=== PATIENT | female | born 1975 | race Caucasian/White ===

== ENCOUNTER → 2021-12-14 17:29 | Outpatient (BNVA) | payer MEDICAID, SELFPAY | PROVIDERS: Visit Provider Emergency Medicine | DX: S90.32XA Contusion of left foot, initial encounter (principal); X58.XXXA Exposure to other specified factors, initial encounter | CPT/HCPCS: 73630 ==

== ENCOUNTER → 2022-01-03 18:40 | Outpatient (BNVA) | payer SELFPAY | PROVIDERS: Visit Provider Registered Nurse Neonatal Intensive Care | DX: N39.0 Urinary tract infection, site not specified (principal); R31.9 Hematuria, unspecified; L30.9 Dermatitis, unspecified | CPT/HCPCS: 81000 ==

== ENCOUNTER 2022-01-21 23:46 | Emergency (ER) | payer MEDICAID, SELFPAY ==
[2022-01-21 23:55] VITALS: BP 193/100; PULSE 86; RESP 18; TEMP 36.6; O2SAT 100; BMI 36.6
[2022-01-21 23:59] VITALS: BP 170/102; PULSE 90; RESP 18
--- NOTE | 2022-01-22 01:02 | ED_ITS ---
HPI - Dental/Oral General: Chief complaint: Dental/Oral Stated complaint: Tooth Pain Time Seen by Provider: 01/22/22 00:00 History of Present Illness: Patient is a 47-year-old female comes to the ED with dental pain. Patient says symptoms started couple hours prior to arrival. She is having pain that is on the left upper jaw. She rates the pain an 8 out of 10. She says she has a bad tooth in left upper jaw that is causing pain. She is going to call around for a dentist on Sunday. Associated symptoms: Denies fever(s) or odynophagia Review of Systems Const: Denies: fever(s), chills or fatigue Eyes: Denies: change in vision or eye discomfort ENMT: Reports: dental pain; Denies: throat pain, odynophagia, nasal discharge or nasal congestion Card: Denies: chest pain, palpitations, edema, swelling of feet/ankles, dyspnea on exertion or orthopnea Resp: Denies: dyspnea, productive cough or non-productive cough GI: Denies: abdominal pain, nausea, vomiting, diarrhea, constipation or hematochezia : Denies: flank pain, dysuria or hematuria Musc: Denies: neck pain, back pain or extremity swelling Skin/Breast: Denies: rash or new lesions Neuro: Denies: headache(s), numbness in extremities or weakness in extremities PFS ED PFSH: Medical History No pertinent family history Surgical History No pertinent past surgical history Social History Smoking and tobacco status: current every day smoker Physical Exam Const: COMMON NORMALS: no acute distress, patient oriented x3 and alert GENERAL APPEARANCE: cooperative and comfortable HENMT: COMMON NORMALS: normocephalic HEAD & SCALP: normocephalic MOUTH: Normal oral and palatal mucosa present TEETH & GINGIVA: Yes abnormal tooth and associated gingiva upper left second molar tender and with associated gingival edema and Yes caries THROAT: posterior oropharynx normal and uvula midline Neck/C-Spine: COMMON NORMALS: supple GENERAL: Yes normal visual inspection Resp: COMMON NORMALS: normal respiratory effort, No retractions, No use of accessory muscles and clear to auscultation bilaterally AUSCULTATION: clear to auscultation bilaterally Cardio: COMMON NORMALS: regular rate, regular rhythm, S1 normal heart sound present, S2 normal heart sound present, No gallops present (Cardio), No clicks present (Cardio), No murmurs present (Cardio) and Peripheral pulses 2+ throughout RATE: regular rate RHYTHM: regular rhythm HEART SOUNDS: S1 normal heart sound present and S2 normal heart sound present PERIPHERAL PULSES: Peripheral pulses 2+ throughout GI: COMMON NORMALS: Normal to inspection, nondistended, normoactive bowel sounds present, Soft to palpation, non-tender and no masses PALPATION: Yes Soft to palpation : COMMON NORMALS: Yes no CVA tenderness BLADDER/KIDNEY EXAM: Yes no CVA tenderness Back/Pelvis: COMMON NORMALS: no CVA tenderness Extremity: COMMON NORMALS: normal to inspection Neuro: COMMON NORMALS: patient oriented x3 and moves all extremities SENSORIUM/ORIENTATION: Yes alert Skin: GENERAL SKIN EXAM: dry skin Course Vital Signs: Vital signs: Vital Signs Temperature 97.8 F 01/21/22 23:55 Pulse Rate 90 01/22/22 01:31 Respiratory Rate 18 01/22/22 01:31 Blood Pressure 170/102 01/22/22 01:31 Pulse Oximetry 100 01/21/22 23:55 MDM - Dental/Oral Medical Decision Making Patient is a 47-year-old female comes to the ED with dental pain. Vitals are stable. She appears nontoxic and has dental caries and some gingival edema and tenderness around left upper molar. Patient diagnosed with dental pain and was given a dose of clindamycin and [place] while here in the ED to help with symptoms. She was discharged home with a prescription for clindamycin and ibuprofen 800 mg and lidocaine viscous. Told to get an appointment set up with a dentist for further evaluation of dental pain. Return to ED precautions given. Patient understood agree with plan. Discharge Plan Discharge Patient Disposition: Home Clinical Impression: Pain, dental Condition: Stable Prescriptions: New ibuprofen 800 mg tablet 800 mg PO Q8H PRN (Reason: pain) Qty: 20 0RF Lidocaine Viscous 2 % solution 1 applic mucous membrane BID PRN (Reason: pain) Qty: 100 0RF clindamycin HCl 150 mg capsule 300 mg PO QID 7 Days Qty: 56 0RF No Action nitrofurantoin monohyd/m-cryst [Macrobid] 100 mg capsule 100 mg PO BID 5 Days Qty: 10 0RF Rx Instructions: must administer with a meal/food triamcinolone acetonide 0.1 % cream 1 applic topical DAILY 14 Days Qty: 30 0RF Discharge Orders: Discharge ED (Routine); Ordered 01/22/22 Ordered By: Ty Maldonado Discharge Diet: Regular Discharge Activity: Increase activity as tolerated Patient Instructions: Toothache (ED) Activity Restrictions/Additional Instructions: Follow-up with dentist as soon as possible to have dental pain evaluated. Take medications as prescribed. Return to the ER or your medical provider if condition worsens. Please read and understand discharge instructions. Thank you for choosing [facility] for your healthcare needs today. Please realize this is an emergency room and that we are providing you with a medical screening exam and this may not be complete and all inclusive of all the testing and or work up that you may need to determine your ailment or severity of your illness. It is very important that you follow up as instructed or that you return to the Emergency Department should you have concerns or if your condition changes or worsens in any way. Coding Level of Care Code ED Metal Fabricator Apprentice for Radha Fwd Exam Comprehensive
[2022-01-22] MEDS: HYDROcodone-acetaminophen 7.5-325 mg Tablet 1 TAB PO (01:23)
[2022-01-22] MEDS: clindamycin 150 mg Capsule 300 MG PO (01:24)
[2022-01-22 01:31] VITALS: BP 170/102; PULSE 90; RESP 18
== END 2022-01-22 01:33 | disposition home or self-care (01) ==
PROVIDERS: Emergency Provider Physician Assistant
DX: K08.89 Other specified disorders of teeth and supporting structures (principal); F17.210 Nicotine dependence, cigarettes, uncomplicated
CPT/HCPCS: 99283

== ENCOUNTER 2022-03-20 07:27 | Emergency (ER) | payer MEDICAID, SELFPAY ==
[2022-03-20] VITALS (7 sets, daily range): BP systolic 118–133; BP diastolic 67–87; PULSE 67–87; RESP 14–22; TEMP 36.4; O2SAT 96–99; BMI 36.6
--- NOTE | 2022-03-20 07:49 | W.ED.ABDPA2 ---
HPI - Abdominal Pain General: Chief Complaint: Abdominal Pain Stated Complaint: abd pain right side, sweating Time Seen by Provider: 03/20/22 07:28 Source: patient Mode of arrival: ambulatory Limitations: no limitations History of Present Illness: 47-year-old female comes in complaining of sudden onset of right flank pain began 1 hour prior to arrival she became dizzy diaphoretic. No vomiting or diarrhea increased pain when she stands or walks uses it less when she said she has not noted any correlation to urination she denies any hematuria. She has previously had a uterine ablation does not have regular periods. No dysuria urgency or frequency no vomiting no diarrhea. No chest pain. No recent cough cold or congestion. MD elicited complaint: flank pain Pertinent past history: none Onset (ago): hour(s) (1) Pain Consistency: constant Location: R flank Severity: moderate Quality: aching Radiation: RLQ and suprapubic Exacerbating factors: nothing Relieving factors: nothing Associated Symptoms: Denies anorexia, belching, bloating, change in bowel habits, change in stool character, chills, coffee ground emesis, constipation, GI cramping, diarrhea, dyspepsia, dysuria, excessive flatus, fever(s), heartburn, hematochezia, hematuria, hematemesis, fecal incontinence, loose stools, melena, nausea, poor appetite, syncope and vomiting Related Data: Date of Last Menstrual Period: 07/23/03 Review of Systems Const: Denies: fever(s) or chills ENMT: Denies: throat pain, ear or mastoid pain, nasal discharge or nasal congestion Card: Denies: syncope Resp: Denies: dyspnea, productive cough or non-productive cough GI: Reports: abdominal pain; Denies: nausea, vomiting, hematemesis, coffee ground emesis, heartburn, diarrhea, constipation, bloating, GI cramping, belching, excessive flatus, fecal incontinence, change in bowel habits, change in stool character, hematochezia or melena : Denies: dysuria or hematuria Skin/Breast: Denies: rash or pruritus PFSH ED PFSH: Medical History No pertinent family history Surgical History History of endometrial ablation Social History Smoking and tobacco status: current every day smoker Female Reproductive History: Date of last menstrual period: 07/23/03 Physical Exam Const: GENERAL APPEARANCE: cooperative and comfortable ORIENTATION/CONSCIOUSNESS: Yes awake, Yes oriented to person, Yes oriented to place and Yes oriented to time HENMT: COMMON NORMALS: normocephalic, atraumatic, hearing grossly normal bilaterally and moist oral mucous membranes HEAD & SCALP: normocephalic and atraumatic Eye: COMMON NORMALS: Equal, round and reactive pupils present, EOMs intact bilaterally, conjunctivae normal and no scleral icterus CONJUNCTIVA: Yes conjunctivae normal PUPIL: Yes Equal, round and reactive pupils present Resp: COMMON NORMALS: normal respiratory effort, No retractions, No use of accessory muscles and clear to auscultation bilaterally AUSCULTATION: clear to auscultation bilaterally Cardio: COMMON NORMALS: regular rate, regular rhythm and No murmurs present (Cardio) RATE: regular rate RHYTHM: regular rhythm GI: COMMON NORMALS: Soft to palpation and No hepatosplenomegaly present AUSCULTATION: Yes normoactive bowel sounds PALPATION: Yes Soft to palpation, No Tenderness to palpation present (GI), No Guarding due to palpation present (GI) and Yes No hepatosplenomegaly present Extremity: COMMON NORMALS: normal to inspection, capillary refill normal, no clubbing, cyanosis or edema, no calf tenderness and no pedal edema Neuro: SENSORIUM/ORIENTATION: Yes oriented to person, Yes oriented to place and Yes oriented to time Skin: COMMON NORMALS: no rashes or lesions noted GENERAL SKIN EXAM: no rashes or lesions noted Course Vital Signs: Vital signs: Vital Signs Temperature 97.6 F 03/20/22 07:39 Pulse Rate 67 03/20/22 13:11 Respiratory Rate 21 H 03/20/22 13:11 Blood Pressure 123/67 03/20/22 13:11 Pulse Oximetry 98 03/20/22 13:11 Oxygen Delivery Me thod 03/20/22 12:22 MDM - Abdominal Pain Medical Decision Making Reviewed findings with patient. Uterine fibroid on ultrasound. Recommend follow-up with gynecology can use NSAIDs prescription given. Medical Records I reviewed the patient's medical records. Lab Data I reviewed the patient's lab results. : 03/20/22 07:44 03/20/22 07:44 Labs/Radiology: Radiology Impressions Abdomen/Pelvis CT 03/20/22 10:22 IMPRESSION: 1. Normal appendix. 2. No renal obstruction or calcification. 3. RIGHT adnexal 2 mm calcification. Favor this is external to the ureter and no secondary findings of a renal obstruction. 4. Mildly prominent, lobulated uterus. May be secondary to fibroids. 5. No free fluid or adenopathy. Laboratory Results WBC 12.2 10^3/uL (4.0-10.0) H 03/20/22 07:44 RBC 4.96 10^6/uL (4.1-5.3) 03/20/22 07:44 Hgb 14.2 g/dL (11.5-15.3) 03/20/22 07:44 Hct 43.9 % (37.0-47.0) 03/20/22 07:44 MCV 88.5 fl (81-99) 03/20/22 07:44 MCH 28.6 pg (28.0-34.0) 03/20/22 07:44 MCHC 32.3 g/dL (30.0-36.0) 03/20/22 07:44 RDW 13.4 % (12.1-15.1) 03/20/22 07:44 Plt Count 373 10^3/cmm (130-400) 03/20/22 07:44 MPV 9.4 fL (7.4-10.4) 03/20/22 07:44 Neut % (Auto) 63.6 % 03/20/22 07:44 Lymph % (Auto) 28.5 % 03/20/22 07:44 Glenn % (Auto) 6.2 % 03/20/22 07:44 Eos % (Auto) 1.2 % 03/20/22 07:44 Baso % (Auto) 0.2 % 03/20/22 07:44 Neut # (Auto) 7.76 10^3/uL (1.8-7.7) H 03/20/22 07:44 Lymph # (Auto) 3.5 10^3/uL (0.8-4.8) 03/20/22 07:44 Glenn # (Auto) 0.8 10^3/uL (0.2-0.9) 03/20/22 07:44 Eos # (Auto) 0.2 10^3/uL (0.0-0.8) 03/20/22 07:44 Baso # (Auto) 0.0 10^3/uL (0.0-0.1) 03/20/22 07:44 Nucleated RBC % (auto) 0 % 03/20/22 07:44 Nucleated RBCs # 0.0 /100WBC 03/20/22 07:44 Sodium 139 mmol/L (136-145) 03/20/22 07:44 Potassium 3.3 mmol/L (3.5-5.1) L 03/20/22 07:44 Chloride 103 mmol/L (98-107) 03/20/22 07:44 Carbon Dioxide 28 mmol/L (-29) 03/20/22 07:44 Anion Gap 11.3 (5-19) 03/20/22 07:44 BUN 15 mg/dL (6-20) 03/20/22 07:44 Creatinine 0.6 mg/dL (0.5-0.9) 03/20/22 07:44 GFR Calculation 108.1 mL/min (90-130) 03/20/22 07:44 Glucose 140 mg/dL (65-115) H 03/20/22 07:44 Calculated Osmolality 291 mOsm/kg (285-295) 03/20/22 07:44 Calcium 9.0 mg/dL (8.5-10.5) 03/20/22 07:44 Total Bilirubin 0.2 mg/dL (0.15-1.2) 03/20/22 07:44 AST 14 U/L (0-32) 03/20/22 07:44 ALT 11 U/L (0-33) 03/20/22 07:44 Alkaline Phosphatase 102 U/L (35-105) 03/20/22 07:44 Total Protein 6.9 g/dL (6.6-8.7) 03/20/22 07:44 Albumin 3.9 g/dL (3.5-5.2) 03/20/22 07:44 Globulin 3.0 g/dL (1.3-4.6) 03/20/22 07:44 Lipase 21 U/L (13-60) 03/20/22 07:44 HCG, Qual Negative (Negative) 03/20/22 07:44 Urine Color Yellow (Yellow) 03/20/22 07:47 Urine Appearance Clear (CLEAR) 03/20/22 07:47 Urine pH 6 (5-7) 03/20/22 07:47 Ur Specific [place] 1.015 (1.005-1.030) 03/20/22 07:47 Urine Protein Neg (Negative) 03/20/22 07:47 Urine Glucose (UA) Norm (Normal) 03/20/22 07:47 Urine Ketones Negative (Negative) 03/20/22 07:47 Urine Blood Trace (Negative) H 03/20/22 07:47 Urine Nitrate Negative (Negative) 03/20/22 07:47 Urine Bilirubin Neg (Negative) 03/20/22 07:47 Urine Urobilinogen Norm mg/dL (Negative) 03/20/22 07:47 Ur Leukocyte Esterase Negative (Negative) 03/20/22 07:47 Urine RBC 0-4 /hpf (0-2) H 03/20/22 07:47 Urine WBC 0-4 /hpf (0-5) H 03/20/22 07:47 Ur Squamous Epith Cells Rare /hpf (0-5) 03/20/22 07:47 Amorphous Sediment Not Reportable 03/20/22 07:47 Urine Bacteria 1+ /hpf (NONE) H 03/20/22 07:47 Discharge Plan Discharge Patient Disposition: Home Clinical Impression: Pelvic pain, Uterine fibroid Condition: Stable Prescriptions: New diclofenac sodium 75 mg tablet,delayed release (DR/EC) 75 mg PO Q12H PRN (Reason: pain) Qty: 20 0RF Discontinued ibuprofen 200 mg Tablet 800 mg PO Q8H PRN (Reason: Pain) Discharge Orders: Discharge ED (Routine); Ordered 03/20/22 Ordered By: Fili Bolanos Patient Instructions: Abdominal Pain (ED), Opioid Safety Activity Restrictions/Additional Instructions: If pain persists or recurs follow-up with your primary care doctor. Coding Level of Care Code ED Central Sterile Tech for Chg Fwd Exam Comprehensive
[2022-03-20 07:56] LABS: Basophils % 0.2 %; Eosinophils # 0.2 10^3/uL (0.0-0.8); Eosinophils % 1.2 %; Hematocrit 43.9 % (37.0-47.0); Hemoglobin 14.2 g/dL (11.5-15.3); Lymphocytes # 3.5 10^3/uL (0.8-4.8); Lymphocytes % 28.5 %; Mean Corpuscular HGB Conc 32.3 g/dL (30.0-36.0); Mean Corpuscular Hemoglobin 28.6 pg (28.0-34.0); Mean Corpuscular Volume 88.5 fl (81-99); Mean Platelet Volume 9.4 fL (7.4-10.4); Monocytes # 0.8 10^3/uL (0.2-0.9); Monocytes % 6.2 %; Neutrophils # 7.76 10^3/uL (1.8-7.7); Neutrophils % 63.6 %; Nucleated Red Blood Cells % 0 %; Platelet Count 373 10^3/cmm (130-400); Red Blood Count 4.96 10^6/uL (4.1-5.3); Red Cell Distribution Width 13.4 % (12.1-15.1); White Blood Count 12.2 10^3/uL (4.0-10.0)
[2022-03-20 08:10] LABS: Alanine Aminotransferase 11 U/L (0-33); Albumin Level 3.9 g/dL (3.5-5.2); Alkaline Phosphatase 102 U/L (35-105); Anion Gap 11.3 (5-19); Aspartate Amino Transferase 14 U/L (0-32); Blood Urea Nitrogen 15 mg/dL (6-20); Carbon Dioxide 28 mmol/L (22-29); Chloride 103 mmol/L (98-107); Glomerular Filtration Rate 108.1 mL/min (90-130); Glucose 140 mg/dL (65-115); HCG, Serum Qual Negative (Negative); Lipase 21 U/L (13-60); Osmolality Calculated 291 mOsm/kg (285-295); Potassium 3.3 mmol/L (3.5-5.1); Sodium 139 mmol/L (136-145); Total Bilirubin 0.2 mg/dL (0.15-1.2); Total Protein 6.9 g/dL (6.6-8.7)
[2022-03-20] MEDS: HYDROmorphone 1 mg/mL INJ 1 mL 0.5 MG IVP (08:13)
[2022-03-20] MEDS: ondansetron 2 mg/ML SDV 2 mL 4 MG IVP (08:13)
[2022-03-20 10:05] LABS: Urine Appearance Clear (CLEAR); Urine Color Yellow (Yellow)
[2022-03-20 10:06] LABS: Add Urine Culture? No; Add Urine Microscopic? YES; Bacteria Urine 1+ /hpf; Bilirubin Urine Neg (Negative); Blood Urine Trace (Negative); Glucose Urine UA Norm (Normal); Ketones Urine Negative (Negative); Leukocyte Esterase Urine Negative (Negative); Nitrate Urine Negative (Negative); Protein Urine Neg (Negative); RBC Urine 0-4 /hpf (0-2); Specific Gravity, Urine 1.015 (1.005-1.030); Squamous Epithelial Cell Urine RARE /hpf (0-5); Urobilinogen Urine Norm (Negative); WBC Urine 0-4 /hpf (0-5); pH Urine 6 (5-7)
--- NOTE | 2022-03-20 10:22 | CT_ITS ---
WS: [id number] CT ABDOMEN AND PELVIS NONCONTRAST HISTORY: Abdominal pain, RIGHT lower quadrant pain]. TECHNIQUE: Imaging performed through the abdomen and pelvis. Coronal and sagittal reformats are submi tted. All CT scans at [facility] use at least one of these dose optimization techniques: auto mated exposure control; mA and/or kV adjustment per patient size (includes targeted exams where dose is matched to clinical indication); or iterative reconstruction. DLP: 891.23 mGy.cm COMPARISON: None available. Lower thorax: Lung bases are clear. Slight enlargement of the heart chambers. Small hiatal hernia. Liver: Mild hepatomegaly. Mild variable attenuation throughout the liver is probably from hepatic dharmesh atosis. Gallbladder: Mildly contracted. No adjacent inflammation. Pancreas: Normal size and attenuation. Normal pancreatic duct. No pancreatitis or mass. Spleen: Normal. Adrenal glands: Normal. No mass. Right kidney: Normal size kidney with no mass or hydronephrosis. Left kidney: Normal size kidney with no mass or hydronephrosis. Aorta: Normal abdominal aorta, no aneurysm or atherosclerosis. No free fluid, intraperitoneal air or significant lymphadenopathy. GI tract: Nondistended stomach. No small bowel obstruction. Moderate diffuse constipation. Normal josé endix. Abdominal wall: Small umbilical hernia. Pelvis: No free fluid in the pelvis. The uterus is anteverted. On the sagittal projection there is a bulbous contour of the uterus suggesting fibroids. No adnexal mass. Tiny calcifications bilaterally w ithin the adnexa. Left-sided calcifications are external to the urological system. There is a 2 mm ca lcification in the RIGHT adnexa closely associated with the ureter. I favor this is external to the u reter. No secondary findings of a renal obstruction. Osseous structures: Unremarkable. CT/CT abdomen pelvis wo con [id number] IMPRESSION: 1. Normal appendix. 2. No renal obstruction or calcification. 3. RIGHT adnexal 2 mm calcification. Favor this is external to the ureter and no secondary findings of a renal obstruction. 4. Mildly prominent, lobulated uterus. May be secondary to fibroids. 5. No free fluid or adenopathy.
== END 2022-03-20 13:12 | disposition home or self-care (01) ==
PROVIDERS: Emergency Provider Family Medicine
DX: R10.2 Pelvic and perineal pain (principal); D25.9 Leiomyoma of uterus, unspecified; F17.210 Nicotine dependence, cigarettes, uncomplicated
CPT/HCPCS: 74176; 80053; 81001; 83690; 84703; 85025; 96374; 96375; 99285; J1170; J2405

== ENCOUNTER 2022-08-06 20:20 | Emergency (ER) | payer MEDICAID, SELFPAY ==
--- NOTE | 2022-08-06 20:24 | XRR_ITS ---
PROCEDURE INFORMATION: Exam: XR Chest Exam date and time: 08/06/2022 8:37 PM Age: 47 years old Clinical indication: Cough and shortness of breath; Additional info: Cough, dyspnea TECHNIQUE: Imaging protocol: Radiologic exam of the chest. Views: 2 views. COMPARISON: CT abdomen pelvis con [id number] 03/20/2022 10:44 AM FINDINGS: Lungs: Unremarkable. No consolidation. Pleural spaces: Unremarkable. No pleural effusion. No pneumothorax. Heart/Mediastinum: Unremarkable. No cardiomegaly. Bones/joints: Unremarkable. XR/XR chest 2V* [id number] IMPRESSION: No acute findings.
[2022-08-06 20:26] VITALS: BP 166/90; PULSE 98; RESP 16; TEMP 37.2; O2SAT 100; BMI 35.5
--- NOTE | 2022-08-06 20:30 | W.ED.FEVER ---
HPI - Fever General: Chief Complaint: Fever Stated Complaint: cough, body aches, lungs hurt Time Seen by Provider: 08/06/22 20:24 PFSH ED PFSH: Medical History No pertinent family history Surgical History History of endometrial ablation Social History Smoking and tobacco status: current every day smoker Female Reproductive History: Date of last menstrual period: 07/23/03 Course Vital Signs: Vital signs: Vital Signs Temperature 99 F 08/06/22 20:26 Pulse Rate 98 08/06/22 20:26 Respiratory Rate 16 08/06/22 20:26 Blood Pressure 166/90 08/06/22 20:26 Pulse Oximetry 100 08/06/22 20:26 Oxygen Delivery Me thod 08/06/22 20:26 Discharge Plan Discharge Condition: Stable Prescriptions: No Action diclofenac sodium 75 mg tablet,delayed release (DR/EC) 75 mg PO Q12H PRN (Reason: pain) Qty: 20 0RF Coding Level of Care Code ED Inking Machine Tender for Radha Delong
[2022-08-06] MEDS: dexamethasone 4 mg Tablet 10 MG PO (21:07)
[2022-08-06] MEDS: azithromycin 250 mg Tablet 500 MG PO (21:07)
[2022-08-06 21:24] LABS: Influenza A by IFA negative (Negative); Influenza B by IFA negative (Negative); SARS Covid-2 Antigen positive (Negative)
--- NOTE | 2022-08-06 21:32 | ED_ITS ---
HPI - Fever General: Chief Complaint: Fever Stated Complaint: cough, body aches, lungs hurt Time Seen by Provider: 08/06/22 20:24 History of Present Illness: 47-year-old female comes in today for complaints of cough and fever since yesterday. Patient reports burning in the chest with cough has a history of bronchitis and smokes. Patient appears unwell but not toxic. No acute distress is noted. Review of Systems Const: Reports: fever(s) and body aches Resp: Reports: dyspnea and productive cough PFSH ED PFSH: Medical History No pertinent family history Surgical History History of endometrial ablation Social History Smoking and tobacco status: current every day smoker Female Reproductive History: Date of last menstrual period: 07/23/03 Physical Exam Const: COMMON NORMALS: alert HENMT: COMMON NORMALS: TM's normal bilaterally HEAD & SCALP: normal to inspection TYMPANIC MEMBRANE: TM's normal bilaterally THROAT: posterior oropharynx normal Resp: COMMON NORMALS: normal respiratory effort AUSCULTATION: wheezes expiratory wheezes Cardio: COMMON NORMALS: regular rate and regular rhythm RATE: regular rate RHYTHM: regular rhythm Extremity: COMMON NORMALS: normal to inspection Neuro: SENSORIUM/ORIENTATION: Yes alert Skin: COMMON NORMALS: turgor normal GENERAL SKIN EXAM: turgor normal Course Vital Signs: Vital signs: Vital Signs Temperature 99 F 08/06/22 20:26 Pulse Rate 98 08/06/22 20:26 Respiratory Rate 16 08/06/22 20:26 Blood Pressure 166/90 08/06/22 20:26 Pulse Oximetry 100 08/06/22 20:26 Oxygen Delivery Me thod 08/06/22 20:26 MDM - Fever Medical Decision Making Patient comes in today with complaints of bronchial discomfort, fever, body aches and productive cough for 2 days. On exam lungs have some expiratory wheezes. Posterior pharynx pink and moist. Bilateral TMs are clear. Vital signs are normal. Differential diagnosis includes acute bronchitis, exacerbation of asthma, COVID-19, influenza. Laboratory tests noted positive COVID-19, chest x-ray was normal. Patient was given a dose of steroids due to her history of asthma and bronchitis. Patient be kept on albuterol 2 puffs every 4 hours as needed for cough or shortness of breath. Encourage patient drink plenty of fluids and follow-up with primary care. Patient also requested a round of azithromycin due to the bronchitis and improvement in the past with it. Agreed to plan and need for follow-up or return to the ER for worsening symptoms. Lab Data Radiology Impressions Chest X-Ray 08/06/22 20:24 IMPRESSION: No acute findings. Laboratory Results Influenza Type A Ag negative (Negative) 08/06/22 20:52 Influenza Type B Ag negative (Negative) 08/06/22 20:52 SARS-CoV-2 Ag (Rapid) positive (Negative) 08/06/22 20:52 Discharge Plan Discharge Patient Disposition: Home Clinical Impression: Bronchitis, COVID-19 Condition: Stable Prescriptions: New dexamethasone 4 mg tablet 4 mg PO DAILY Qty: 4 0RF azithromycin 250 mg tablet 250 mg PO DAILY 4 Days Qty: 4 0RF Rx Instructions: start on day 2 of therapy No Action diclofenac sodium 75 mg tablet,delayed release (DR/EC) 75 mg PO Q12H PRN (Reason: pain) Qty: 20 0RF Discharge Orders: Discharge ED (Routine); Ordered 08/06/22 Ordered By: Logan Gonzalez Discharge Diet: Usual diet Discharge Activity: Increase activity as tolerated Patient Instructions: Acute Bronchitis (ED), COVID-19 (Coronavirus Disease 2019) (ED) Activity Restrictions/Additional Instructions: Home and rest. Drink plenty of fluids. Use acetaminophen and ibuprofen for pain and discomfort. Use albuterol inhaler 2 puffs every 4 hours as needed for shortness of breath or wheezing. Follow-up with primary care for further instructions return to ED for new concerns. Stand Alone Forms: Work/School Release Coding Level of Care Code ED Analyst Market Intelligence for Radha Delong
[2022-08-06] MEDS: albuterol 8 gm MDI 2 PUFF INHALATION (21:50)
[2022-08-06 21:51] VITALS: PULSE 80; RESP 16; O2SAT 96
[2022-08-06 21:56] VITALS: BP 150/87; PULSE 89; RESP 15; TEMP 37.3; O2SAT 100
== END 2022-08-06 21:56 | disposition home or self-care (01) ==
PROVIDERS: Emergency Provider Nurse Practitioner Family
DX: U07.1 COVID-19 (principal); J40 Bronchitis, not specified as acute or chronic; Z20.822 Contact with and (suspected) exposure to COVID-19; F17.210 Nicotine dependence, cigarettes, uncomplicated
CPT/HCPCS: 71046; 87426; 87804; 94640; 99283; J3535; J8540; Q0144

== ENCOUNTER 2022-08-25 17:43 | Emergency (ER) | payer MEDICAID, SELFPAY ==
[2022-08-25 18:03] VITALS: BP 188/111; PULSE 94; RESP 18; TEMP 36.5; O2SAT 96; BMI 35.5
--- NOTE | 2022-08-25 18:06 | XRR_ITS ---
NOTE: Report was unsigned for reason: Order was edited. Original Signature date and time was: 08/25/2022 1851 PROCEDURE INFORMATION: Exam: XR Left Hand Exam date and time: 08/25/2022 6:23 PM Age: 47 years old Clinical indication: Pain; Hand; Left; Additional info: Fall; Injury, today, pain mostly around thumb TECHNIQUE: Imaging protocol: Radiologic exam of the Left hand. Views: 3 or more views. COMPARISON: No relevant prior studies available. FINDINGS: Bones/joints: There are mild degenerative changes 1st carpometacarpal articulation. Remaining joint surfaces are preserved. There is no fracture, dislocation or malalignment. Soft tissues: Unremarkable. MTDD XR/XR hand RT min 3V* [id number] IMPRESSION: No acute bony abnormalities.
--- NOTE | 2022-08-25 19:42 | W.ED.FALL ---
HPI - Fall General: Chief Complaint: Fall Stated Complaint: fall, right hand pain Time Seen by Provider: 08/25/22 19:37 History of Present Illness: Patient is a 47-year-old female comes to the ED with Right hand pain after fall. Patient says she slipped on some ice and landed with her Right arm extended out. She is complaining of having pain that is mostly located in her thumb. She has some mild swelling and bruising in the thenar region of hand. Increased pain with range of motion of the thumb. She rates her pain currently 4 out of 10. Associated symptoms-after fall: Denies abdominal pain, chest pain, headache(s), hematuria or neck pain Review of Systems Const: Denies: fever(s), chills or fatigue Eyes: Denies: change in vision or eye discomfort ENMT: Denies: throat pain, odynophagia, nasal discharge or nasal congestion Card: Denies: chest pain, palpitations, edema, swelling of feet/ankles, dyspnea on exertion or orthopnea Resp: Denies: dyspnea, productive cough or non-productive cough GI: Denies: abdominal pain, nausea, vomiting, diarrhea, constipation or hematochezia : Denies: flank pain, dysuria or hematuria Musc: Reports: extremity pain (Right hand) and extremity swelling (Right hand); Denies: neck pain or back pain Skin/Breast: Denies: rash or new lesions Neuro: Denies: headache(s), numbness in extremities or weakness in extremities PFS ED PFSH: Medical History No pertinent family history Surgical History History of endometrial ablation Social History Smoking and tobacco status: current every day smoker Female Reproductive History: Date of last menstrual period: 07/23/03 Physical Exam Const: COMMON NORMALS: patient oriented x3 and alert GENERAL APPEARANCE: cooperative and comfortable HENMT: COMMON NORMALS: normocephalic HEAD & SCALP: normocephalic MOUTH: Normal oral and palatal mucosa present THROAT: posterior oropharynx normal and uvula midline Neck/C-Spine: COMMON NORMALS: supple GENERAL: Yes normal visual inspection Resp: COMMON NORMALS: normal respiratory effort, No retractions, No use of accessory muscles and clear to auscultation bilaterally AUSCULTATION: clear to auscultation bilaterally Cardio: COMMON NORMALS: regular rate, regular rhythm, S1 normal heart sound present, S2 normal heart sound present, No gallops present (Cardio), No clicks present (Cardio), No murmurs present (Cardio) and Peripheral pulses 2+ throughout RATE: regular rate RHYTHM: regular rhythm HEART SOUNDS: S1 normal heart sound present and S2 normal heart sound present PERIPHERAL PULSES: Peripheral pulses 2+ throughout GI: COMMON NORMALS: Normal to inspection, nondistended, normoactive bowel sounds present, Soft to palpation, non-tender and no masses PALPATION: Yes Soft to palpation : COMMON NORMALS: Yes no CVA tenderness BLADDER/KIDNEY EXAM: Yes no CVA tenderness Back/Pelvis: COMMON NORMALS: no CVA tenderness Extremity: COMMON NORMALS: normal to inspection NARRATIVE EXTREMITY EXAM: Right hand?some mild swelling and ecchymosis around the thenar aspect of thumb and hand. Full range of motion in all fingers. Neurovascular intact distally. Neuro: COMMON NORMALS: patient oriented x3 SENSORIUM/ORIENTATION: Yes alert GAIT: Yes Normal gait present Skin: GENERAL SKIN EXAM: dry skin Course Vital Signs: Vital signs: Vital Signs Temperature 97.7 F 08/25/22 18:03 Pulse Rate 91 08/25/22 19:57 Respiratory Rate 18 08/25/22 19:57 Blood Pressure 188/111 08/25/22 18:03 Pulse Oximetry 96 08/25/22 19:57 Oxygen Delivery Me thod 08/25/22 18:03 MDM - Fall Medical Decision Making Patient is a 47-year-old female comes to the ED with right hand pain after fall. Patient says she slipped on some ice and landed with her right arm extended out. She is complaining of having pain that is mostly located in her thumb. She has some mild swelling and bruising in the thenar region of hand. Increased pain with range of motion of the thumb. She rates her pain currently 4 out of 10. Right hand?some mild swelling and ecchymosis around the thenar aspect of thumb and hand. Full range of motion in all fingers. Neurovascular intact distally. Vitals are stable. Right hand x-ray shows no acute bony abnormalities. Patient was diagnosed with a contusion of hand and was stable for discharge home. She was given a dose of Toradol before she discharged. Told to follow-up with her PCP in the next 7 to 10 days for reevaluation. Return to ED precautions given. Patient understood and agreed with plan. Lab Data Radiology Impressions Hand X-Ray 08/25/22 18:06 IMPRESSION: No acute bony abnormalities. Discharge Plan Discharge Patient Disposition: Home Clinical Impression: Contusion of hand Qualifiers: Encounter type: initial encounter Laterality: right Qualified Code(s): S60.221A - Contusion of right hand, initial encounter Condition: Stable Prescriptions: No Action diclofenac sodium 75 mg tablet,delayed release (DR/EC) 75 mg PO Q12H PRN (Reason: pain) Qty: 20 0RF dexamethasone 4 mg tablet 4 mg PO DAILY Qty: 4 0RF Discharge Orders: Discharge ED (Routine); Ordered 08/25/22 Ordered By: Ty Maldonado Discharge Diet: Regular Discharge Activity: Increase activity as tolerated Patient Instructions: Contusion in Adults (ED) Activity Restrictions/Additional Instructions: Follow-up with medical provider as directed in the next 5 to 7 days for reevaluation. Rest, ice and elevate Right hand. Take [id number] ibuprofen for any pain or inflammation. Return to the ER or your medical provider if condition worsens. Please read and understand discharge instructions. Thank you for choosing [facility] for your healthcare needs today. Please realize this is an emergency room and that we are providing you with a medical screening exam and this may not be complete and all inclusive of all the testing and or work up that you may need to determine your ailment or severity of your illness. It is very important that you follow up as instructed or that you return to the Emergency Department should you have concerns or if your condition changes or worsens in any way. Coding Level of Care Code ED Packing Room Supervisor for Radha Delong Exam Comprehensive
[2022-08-25] MEDS: ketorolac 60 mg/2 mL INJ IM (19:55)
[2022-08-25 19:57] VITALS: PULSE 91; RESP 18; O2SAT 96
== END 2022-08-25 19:58 | disposition home or self-care (01) ==
PROVIDERS: Emergency Provider Physician Assistant
DX: S60.221A Contusion of right hand, initial encounter (principal); F17.210 Nicotine dependence, cigarettes, uncomplicated; W00.0XXA Fall on same level due to ice and snow, initial encounter
CPT/HCPCS: 73130; 96372; 99284; J1885

== ENCOUNTER 2023-02-02 07:08 | Emergency (ER) | payer MEDICAID, SELFPAY ==
[2023-02-02] VITALS (9 sets, daily range): BP systolic 129–216; BP diastolic 57–115; PULSE 67–82; RESP 16–18; TEMP 36.4; O2SAT 94–100
--- NOTE | 2023-02-02 07:32 | XR_ITS ---
WS: [id number] Portable AP upright chest, 02/02/2023 Clinical Data: epigastric pain Comparison: Portable chest, 08/06/2022 Findings: No nodules, masses or effusions are seen. The heart is normal. The pulmonary vascularity is not increased. No pneumonia or pneumothorax is seen. The aortic arch and descending thoracic aorta s how minimal tortuosity. XR/XR chest 1V portable [id number] Impression: Atherosclerosis.
--- NOTE | 2023-02-02 07:39 | ED_ITS ---
HPI - Abdominal Pain General: Chief Complaint: Abdominal Pain Stated Complaint: abd pain/back pain Time Seen by Provider: 02/02/23 07:31 History of Present Illness: Patient is a 48-year-old female who comes to the ED with abdominal pain. Symptoms started around 2:00 AM this morning while laying in bed.. Pain is located in the epigastric region and it radiates to her back. She rates the pain currently a 9 out of 10 and says its a sharp stabbing type pain. She has never had abdominal pain like this in the past. Denies any chest pain. Patient says she has tried taking Tums and that provided no relief. Denies any other improving or relieving factors. Denies any past abdominal surgeries. Denies fevers, chills, nausea, vomiting, bladder or bowel symptoms. No history of GERD. Associated Symptoms: Denies chills, constipation, diarrhea, dysuria, fever(s), hematochezia, hematuria, nausea and vomiting Review of Systems Const: Denies: fever(s), chills or fatigue Eyes: Denies: change in vision or eye discomfort ENMT: Denies: throat pain, odynophagia, nasal discharge or nasal congestion Card: Denies: chest pain, palpitations, edema, swelling of feet/ankles, dyspnea on exertion or orthopnea Resp: Denies: dyspnea, productive cough or non-productive cough GI: Reports: abdominal pain; Denies: nausea, vomiting, diarrhea, constipation or hematochezia : Denies: flank pain, dysuria or hematuria Musc: Denies: neck pain, back pain or extremity swelling Skin/Breast: Denies: rash or new lesions Neuro: Denies: headache(s), numbness in extremities or weakness in extremities PFS ED PFSH: Medical History No pertinent family history Surgical History History of endometrial ablation Social History Smoking and tobacco status: current every day smoker Substance/Drug Use: current Physical Exam Const: COMMON NORMALS: no acute distress, patient oriented x3 and alert HENMT: COMMON NORMALS: normocephalic HEAD & SCALP: normocephalic MOUTH: Normal oral and palatal mucosa present THROAT: posterior oropharynx normal and uvula midline Neck/C-Spine: COMMON NORMALS: supple GENERAL: Yes normal visual inspection Resp: COMMON NORMALS: normal respiratory effort, No retractions, No use of accessory muscles and clear to auscultation bilaterally AUSCULTATION: clear to auscultation bilaterally Cardio: COMMON NORMALS: regular rate, regular rhythm, S1 normal heart sound present, S2 normal heart sound present, No gallops present (Cardio), No clicks p resent (Cardio), No murmurs present (Cardio) and Peripheral pulses 2+ throughout RATE: regular rate RHYTHM: regular rhythm HEART SOUNDS: S1 normal heart sound present and S2 normal heart sound present PERIPHERAL PULSES: Peripheral pulses 2+ throughout GI: COMMON NORMALS: Normal to inspection, nondistended, normoactive bowel sounds present, Soft to palpation and no masses PALPATION: Yes Soft to palpation and Yes Tenderness to palpation present (GI) Details: other (Epigastric) : COMMON NORMALS: Yes no CVA tenderness BLADDER/KIDNEY EXAM: Yes no CVA tenderness Back/Pelvis: COMMON NORMALS: no CVA tenderness Extremity: COMMON NORMALS: normal to inspection Neuro: COMMON NORMALS: patient oriented x3 SENSORIUM/ORIENTATION: Yes alert GAIT: Yes Normal gait present Skin: GENERAL SKIN EXAM: dry skin Course Vital Signs: Vital signs: Vital Signs Temperature 97.5 F L 02/02/23 07:24 Pulse Rate 76 02/02/23 11:35 Respiratory Rate 16 02/02/23 11:35 Blood Pressure 132/79 02/02/23 11:35 Pulse Oximetry 100 02/02/23 11:35 Oxygen Delivery Me thod Room Air 02/02/23 07:24 MDM - Abdominal Pain Medical Decision Making Patient is a 48-year-old female who comes to the ED with abdominal pain. Symptoms started around 2:00 AM this morning while laying in bed.. Pain is located in the epigastric region and it radiates to her back. She rates the pain currently a 9 out of 10 and says its a sharp stabbing type pain. She has never had abdominal pain like this in the past. Denies any chest pain. Patient says she has tried taking Tums and that provided no relief. Denies any other improving or relieving factors. Denies any past abdominal surgeries. Denies fevers, chills, nausea, vomiting, bladder or bowel symptoms. No history of GERD. Vitals are stable. Exam shows some epigastric abdominal tenderness but rest of exam is benign. White blood cell count of 13.2 but the rest of CBC and CMP are unremarkable. Lipase was normal. H. pylori negative. Troponins negative. EKG showed no acute findings. Chest x-ray was normal. CT of abdomen pelvis showed gallbladder that showed some trace sludge and was somewhat distended with a proximal gallstone suspected. They recommended doing an ult rasound for further evaluation. Ultrasound of her gallbladder was performed and it showed cholelithiasis with no other signs of acute cholecystitis. Patient was given IV fluids, nausea meds, Pepcid and pain meds and her symptoms improved. She was able to tolerate p.o. fluids. She is stable for discharge home and diagnosed with cholelithiasis and I placed order with case management for patient be referred to general surgery for follow-up. She was sent home with a prescription for pain meds and nausea meds. Strict return to ED precautions given. Patient understood and agreed with plan. Lab Data I reviewed the patient's lab results. 02/02/23 07:39 02/02/23 07:39 Labs/Radiology: Radiology Impressions Chest X-Ray 02/02/23 07:32 Impression: Atherosclerosis. Abdomen/Pelvis CT 02/02/23 08:34 IMPRESSION: 1. The gallbladder is somewhat distended with trace sludge as well as suspected proximal gallstones. There appears to be some slight wall thickening and faint stranding. Some early inflammation of cholecystitis with cholelithiasis could also present in this fashion. Consider right upper quadrant ultrasound as well as hepatobiliary profile studies. 2. The bowel gas pattern appears nonobstructive overall. There is some incomplete distention although could be peristaltic related versus sequela of previous inflammation for example about the hepatic flexure. Overall no fluid collections or acute inflammatory stranding changes of the abdomen are otherwise appreciated. Gallbladder Ultrasound 02/02/23 09:57 Impression: Cholelithiasis. Laboratory Results WBC 13.2 10^3/uL (4.0-10.0) H 02/02/23 07:39 RBC 4.85 10^6/uL (4.1-5.3) 02/02/23 07:39 Hgb 13.3 g/dL (11.5-15.3) 02/02/23 07:39 Hct 41.8 % (37.0-47.0) 02/02/23 07:39 MCV 86.2 fl (81-99) 02/02/23 07:39 MCH 27.4 pg (28.0-34.0) L 02/02/23 07:39 MCHC 31.8 g/dL (30.0-36.0) 02/02/23 07:39 RDW 13.8 % (12.1-15.1) 02/02/23 07:39 Plt Count 333 10^3/cmm (130-400) 02/02/23 07:39 MPV 9.4 fL (7.4-10.4) 02/02/23 07:39 Neut % (Auto) 71.1 % 02/02/23 07:39 Lymph % (Auto) 19.0 % 02/02/23 07:39 [place] % (Auto) 8.0 % 02/02/23 07:39 Eos % (Auto) 1.5 % 02/02/23 07:39 Baso % (Auto) 0.2 % 02/02/23 07:39 Neut # (Auto) 9.38 10^3/uL (1.8-7.7) H 02/02/23 07:39 Lymph # (Auto) 2.5 10^3/uL (0.8-4.8) 02/02/23 07:39 [place] # (Auto) 1.1 10^3/uL (0.2-0.9) H 02/02/23 07:39 Eos # (Auto) 0.2 10^3/uL (0.0-0.8) 02/02/23 07:39 Baso # (Auto) 0.0 10^3/uL (0.0-0.1) 02/02/23 07:39 Nucleated RBC % (auto) 0 % 02/02/23 07:39 Nucleated RBCs # 0.0 /100WBC 02/02/23 07:39 Sodium 138 mmol/L (136-145) 02/02/23 07:39 Potassium 4.1 mmol/L (3.5-5.1) 02/02/23 07:39 Chloride 105 mmol/L (98-107) 02/02/23 07:39 Carbon Dioxide 24 mmol/L (22-29) 02/02/23 07:39 Anion Gap 13.1 (5-19) 02/02/23 07:39 BUN 15 mg/dL (6-20) 02/02/23 07:39 Creatinine 0.5 mg/dL (0.5-0.9) 02/02/23 07:39 GFR Calculation 132.8 mL/min (90-130) H 02/02/23 07:39 Glucose 119 mg/dL (65-115) H 02/02/23 07:39 Calculated Osmolality 288 mOsm/kg (285-295) 02/02/23 07:39 Calcium 9.2 mg/dL (8.5-10.5) 02/02/23 07:39 Total Bilirubin 0.3 mg/dL (0.15-1.2) 02/02/23 07:39 AST 14 U/L (0-32) 02/02/23 07:39 ALT 15 U/L (0-33) 02/02/23 07:39 Alkaline Phosphatase 105 U/L (35-105) 02/02/23 07:39 Troponin T Baseline 6 ng/L (0-10) 02/02/23 07:39 Troponin T 120 Minute 6.00 ng/L (0-10) 02/02/23 10:40 Delta Troponin T 0 ABS# (0-10) 02/02/23 10:40 Total Protein 7.0 g/dL (6.6-8.7) 02/02/23 07:39 Albumin 3.9 g/dL (3.5-5.2) 02/02/23 07:39 Globulin 3.1 g/dL (1.3-4.6) 02/02/23 07:39 Lipase 34 U/L (13-60) 02/02/23 07:39 Urine Color Yellow (Yellow) 02/02/23 09:32 Urine Appearance Sl hazy (CLEAR) A 02/02/23 09:32 Urine pH 7 (5-7) 02/02/23 09:32 Ur Specific Thompson 1.005 (1.005-1.030) 02/02/23 09:32 Urine Protein Neg (Negative) 02/02/23 09:32 Urine Glucose (UA) Norm (Normal) 02/02/23 09:32 Urine Ketones Negative (Negative) 02/02/23 09:32 Urine Blood 2+ (Negative) H 02/02/23 09:32 Urine Nitrate Negative (Negative) 02/02/23 09:32 Urine Bilirubin Neg (Negative) 02/02/23 09:32 Urine Urobilinogen Norm mg/dL (Negative) 02/02/23 09:32 Ur Leukocyte Esterase Negative (Negative) 02/02/23 09:32 Urine RBC 0-4 /hpf (0-2) H 02/02/23 09:32 Urine WBC 0-4 /hpf (0-5) H 02/02/23 09:32 Ur Squamous Epith Cells 5-10 /hpf (0-5) H 02/02/23 09:32 Amorphous Sediment 2+ /hpf 02/02/23 09:32 Urine Bacteria Trace /hpf (NONE) 02/02/23 09:32 H. pylori IgG Antibody Negative (Negative) 02/02/23 07:39 EKG Data EKG 1: EKG interpretation date: 02/02/23 Interpretation: Normal sinus rhythm, 71 bpm, no ST segment elevation or depression seen. Discharge Plan Discharge Patient Disposition: Home Clinical Impression: Cholelithiasis Condition: Stable Prescriptions: New ondansetron 4 mg tablet,disintegrating 4 mg PO Q8H PRN (Reason: nausea and vomiting) Qty: 20 0RF No Action doxycycline hyclate 100 mg tablet 100 mg PO BID 7 Days Qty: 14 0RF Discharge Orders: Discharge ED (Routine); Ordered 02/02/23 Ordered By: Ty Maldonado Discharge Diet: Advance as tolerated and Clear Liquid Discharge Activity: Increase activity as tolerated Patient Instructions: Cholelithiasis, Gallstones (ED), Opioid Safety Activity Restrictions/Additional Instructions: Follow-up with medical provider as directed in the next 5 to 7 days for reevaluation. Case management should be contacted in the next several days to set up an appointment with general surgery for follow-up. Clear liquid diet for the next 24 hours and slowly advance diet as tolerated. Take medications as prescribed. Return to the ER or your medical provider if condition worsens. Please read and understand discharge instructions. Thank you for choosing [facility] for your healthcare needs today. Please realize this is an emergency room and that we are providing you with a medical screening exam and this may not be complete and all inclusive of all the testing and or work up that you may need to determine your ailment or severity of your illness. It is very important that you follow up as instructed or that you return to the Emergency Department should you have concerns or if your condition changes or worsens in any way. Stand Alone Forms: Work/School Release Coding Level of Care Code ED Assistant Chief Train Dispatcher for Radha Delong
[2023-02-02 07:48] LABS: Basophils % 0.2 %; Eosinophils # 0.2 10^3/uL (0.0-0.8); Eosinophils % 1.5 %; Hematocrit 41.8 % (37.0-47.0); Hemoglobin 13.3 g/dL (11.5-15.3); Lymphocytes # 2.5 10^3/uL (0.8-4.8); Mean Corpuscular HGB Conc 31.8 g/dL (30.0-36.0); Mean Corpuscular Hemoglobin 27.4 pg (28.0-34.0); Mean Corpuscular Volume 86.2 fl (81-99); Mean Platelet Volume 9.4 fL (7.4-10.4); Monocytes # 1.1 10^3/uL (0.2-0.9); Neutrophils # 9.38 10^3/uL (1.8-7.7); Neutrophils % 71.1 %; Nucleated Red Blood Cells % 0 %; Platelet Count 333 10^3/cmm (130-400); Red Blood Count 4.85 10^6/uL (4.1-5.3); Red Cell Distribution Width 13.8 % (12.1-15.1); White Blood Count 13.2 10^3/uL (4.0-10.0)
--- NOTE | 2023-02-02 07:52 | ECG_ITS ---
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 Measurements Intervals [place] Rate: 66 P: 28 GA: 140 QRS: 66 QRSD: 93 T: 63 QT: 407 QTc: 428 Interpretive Statements SINUS RHYTHM No previous ECG available for comparison Electronically Signed On 02-02-2023 8:08:59 CDT by Trinh Ruiz M.D. [id number]
[2023-02-02] MEDS: ondansetron 2 mg/ML SDV 2 mL 4 MG IVP (07:58)
[2023-02-02] MEDS: famotidine 20 mg/2 mL INJ 40 MG IVP (07:58)
[2023-02-02] MEDS: morphine 4 mg/mL SDV 1 mL IVP (07:58)
[2023-02-02] MEDS: sodium chloride 0.9% 1,000 ML 999 ML IV (07:59)
[2023-02-02 08:06] LABS: Troponin(5th) Baseline 6 ng/L (0-10)
[2023-02-02 08:08] LABS: Alanine Aminotransferase 15 U/L (0-33); Albumin Level 3.9 g/dL (3.5-5.2); Alkaline Phosphatase 105 U/L (35-105); Anion Gap 13.1 (5-19); Aspartate Amino Transferase 14 U/L (0-32); Blood Urea Nitrogen 15 mg/dL (6-20); Calcium 9.2 mg/dL (8.5-10.5); Carbon Dioxide 24 mmol/L (22-29); Chloride 105 mmol/L (98-107); Globulin 3.1 g/dL (1.3-4.6); Glomerular Filtration Rate 132.8 mL/min (90-130); Glucose 119 mg/dL (65-115); Lipase 34 U/L (13-60); Osmolality Calculated 288 mOsm/kg (285-295); Potassium 4.1 mmol/L (3.5-5.1); Sodium 138 mmol/L (136-145); Total Bilirubin 0.3 mg/dL (0.15-1.2)
[2023-02-02 08:29] LABS: H. Pylori IgG Antibody Negative (Negative)
--- NOTE | 2023-02-02 08:34 | CTR_ITS ---
PROCEDURE INFORMATION: Exam: CT Abdomen And Pelvis With Contrast Exam date and time: 02/02/2023 8:48 AM Age: 48 years old Clinical indication: Abdominal pain; Epigastric; Prior surgery; Surgery date: 6+ months; Additional info: Epigastric pain and tenderness.No history of trauma or recent surgery is provided. TECHNIQUE: Imaging protocol: Computed tomography of the abdomen and pelvis with contrast. 210image(s) are provided. Radiation optimization: All CT scans at this facility use at least one of these dose optimization techniques: automated exposure control; mA and/or kV adjustment per patient size (includes targeted exams where dose is matched to clinical indication); or iterative reconstruction. Contrast material: OMNI 350; Contrast volume: 100 ml; Contrast route: INTRAVENOUS (IV); Other technique: Axial images are available with sagittal and coronal reconstruction views. Automated dose exposure control is utilized. The DLP is 996.52. REPORTING DATA: Count of CT and Cardiac NM exams in prior 12 months: This patient has received [address] and 0 known cardiac nuclear medicine studies in the 12 months prior to the current study. COMPARISON: 1. CT abdomen pelvis wo con [id number] 03/20/2022 10:44 AM 2. CR XR chest 1V portable [id number] 02/02/2023 7:47 AM RADIATION DOSE METRICS: Total DLP (mGy-cm): 996.52 FINDINGS: Lungs: No lobar consolidation is appreciated. There is minimal subsegmental atelectasis versus post inflammatory scarring demonstrated. Liver: There appears to be some marginal hepatic steatosis. There is some subtle periportal tracking. There appears to be some developmental fat near the fissure for ligamentum teres similar overall with subtle cortical lobulation. Gallbladder and bile ducts: There is some gallbladder sludge and gallstone type appearance with proximal predominance. There appears to be some subtle gallbladder wall thickening. No definite common ductal level radiopaque obstructive calculus is appreciated.Distal most, ampullary level evaluation is limited. Pancreas: No interval pancreatic ductal dilatation or radiopaque calculus is currently appreciated. Spleen: The splenic parenchyma appears homogeneous. Adrenal glands: Unremarkable. Kidneys and ureters: There is homogeneous renal parenchymal enhancement with no interval radiopaque obstructive calculus or hydronephrosis appreciated. Stomach and bowel: Some aspects of the colon are undistended. This may also be peristaltic related.There is abundant stool present limiting mucosal detail evaluation.The bowel gas pattern appears nonobstructive.There is a small sliding-type hiatal hernia demonstrated with slight gastroesophageal fold thickening. There is some bowel and luminal associated artifact. There is some small bowel prominence for example central left upper quadrant at approximately 3 cm. Appendix: No evidence of appendicitis. Intraperitoneal space: No free air or free fluid collections are otherwise appreciated. Vasculature: No interval aortic aneurysmal dilatation or intimal irregularity is appreciated with some mild atherosclerotic vascular calcification. There is some slight tortuosity about the splenic hilum vessels similar overall. Lymph nodes: There are subcentimeter predominant para-aortic and mesenteric lymph nodes overall present. Urinary bladder: The bladder contours are grossly unremarkable. Reproductive: There appears to be some trace central uterine canal fluid along with lobulated myomatous appearance. There are some ovarian follicular cystic type changes present. Bones/joints: Osseous alignment is maintained.No interval displaced fracture or dislocation is appreciated. There is some mild chronic appearing disc space narrowing at the lumbosacral junction predominantly. Soft tissues: No radiopaque foreign body or subcutaneous emphysema is appreciated. Other findings: There is some motion artifact present. No other significant interval changes are appreciated. CT/CT abdomen pelvis w con* [id number] IMPRESSION: 1. The gallbladder is somewhat distended with trace sludge as well as suspected proximal gallstones. There appears to be some slight wall thickening and faint stranding. Some early inflammation of cholecystitis with cholelithiasis could also present in this fashion. Consider right upper quadrant ultrasound as well as hepatobiliary profile studies. 2. The bowel gas pattern appears nonobstructive overall. There is some incomplete distention although could be peristaltic related versus sequela of previous inflammation for example about the hepatic flexure. Overall no fluid collections or acute inflammatory stranding changes of the abdomen are otherwise appreciated.
[2023-02-02] MEDS: iohexol 350 mg/mL 500 mL Btl (per mL) IV (08:55)
[2023-02-02 09:43] LABS: Add Urine Microscopic? YES; Bacteria Urine TRACE /hpf; Bilirubin Urine Neg (Negative); Blood Urine 2+ (Negative); Glucose Urine UA Norm (Normal); Ketones Urine Negative (Negative); Leukocyte Esterase Urine Negative (Negative); Nitrate Urine Negative (Negative); Protein Urine Neg (Negative); RBC Urine 0-4 /hpf (0-2); Specific Gravity, Urine 1.005 (1.005-1.030); Urine Appearance SL Hazy (CLEAR); Urine Color Yellow (Yellow); Urobilinogen Urine Norm (Negative); WBC Urine 0-4 /hpf (0-5); pH Urine 7 (5-7)
[2023-02-02 09:44] LABS: Add Urine Culture? No; Amorphous Sediment Urine 2+ /hpf
--- NOTE | 2023-02-02 09:49 | ECG_ITS ---
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 Measurements Intervals [place] Rate: 71 P: 20 NV: 144 QRS: 59 QRSD: 94 T: 56 QT: 406 QTc: 444 Interpretive Statements SINUS RHYTHM Compared to ECG 02/02/2023 07:52:42 No significant changes Electronically Signed On 02-02-2023 11:28:52 CDT by Trinh Ruiz M.D. [id number]
--- NOTE | 2023-02-02 09:57 | US_ITS ---
WS: [id number] Gallbladder right upper quadrant ultrasound, 02/02/2023 Clinical Data: Upper abdominal pain-RUQ Comparison: None. Findings: The gallbladder shows numerous gallstones with one stone lodged in the neck of the gallbladder. The w all measures 1.0 cm with no pericholecystic fluid. The common bile duct is 0.6 cm and there are no intrahepatic ductal abnormalities. Liver shows no cysts, masses or dilated intrahepatic ducts. The portal vein is normal. The pancreas is not obscured by overlying bowel gas and no cyst, pseudocyst, or evidence of pancreati tis is noted. Right kidney measures 13.8 cm and no cyst, masses or hydronephrosis can be seen. The aorta and inferior vena cava show no vascular abnormalities. US/US gall bladder [id number] Impression: Cholelithiasis.
[2023-02-02] MEDS: HYDROmorphone 1 mg/mL INJ 1 mL IVP (10:14)
[2023-02-02 11:08] LABS: Troponin 5 2HR Delta 0 ABS# (0-10)
--- NOTE | 2023-02-02 12:18 | DCPLANNER ---
Addendum entered by Shamika Higgins 02/23/23 09:02: Patient had a follow up appointment scheduled with general surgery - patient did attend appointment. Addendum entered by Shamika Higgins 02/05/23 14:33: Patient has a follow up appointment scheduled for Monday, February 20, 2023 at 11:[address] Wheatley at general surgery. Original Note: spd manager had message to schedule a follow up appointment for patient with general surgery. spd manager sent patients information to the front office staff at general surgery. Patients information will be printed and reviewed. Clinic will call patient with appointment information.
== END 2023-02-02 11:36 | disposition home or self-care (01) ==
PROVIDERS: Emergency Provider Physician Assistant
DX: K80.20 Calculus of gallbladder without cholecystitis without obstruction (principal)
CPT/HCPCS: 71045; 74177; 76705; 80053; 81001; 83690; 84484; 85025; 86677; 93005; 96374; 96375; 99285; J1170; J2270; J2405; J3490; J7030; Q9967

== ENCOUNTER 2023-02-06 01:43 | Emergency (ER) | payer MEDICAID, SELFPAY ==
[2023-02-06 01:52] VITALS: BP 212/130; PULSE 80; RESP 18; TEMP 36.4; O2SAT 100; BMI 36.6
--- NOTE | 2023-02-06 01:55 | ED_ITS ---
HPI - Abdominal Pain General: Chief Complaint: Abdominal Pain Stated Complaint: Gall Bladder Pain Time Seen by Provider: 02/06/23 01:44 Source: patient Mode of arrival: ambulatory Limitations: no limitations History of Present Illness: 48-year-old female with history of gallstones she was seen here 4 days ago diagnosed with cholelithiasis states she had been out of her pain meds she has an appointment with surgeon on the first. She states that tonight she ate burrito and salsa and having worsening pain over the last few hours. States pain is in the right upper quadrant rates it a 9 out of 10 had some nausea denies any vomiting denies any fevers. Associated Symptoms: Denies chills, diarrhea, fever(s), nausea and vomiting Review of Systems Const: Denies: fever(s), chills, body aches or change in appetite ENMT: Denies: throat pain or dental pain Card: Denies: chest pain Resp: Denies: dyspnea GI: Reports: abdominal pain; Denies: nausea, vomiting or diarrhea Musc: Denies: neck pain or back pain Skin/Breast: Denies: rash Neuro: Denies: headache(s) PFSH ED PFSH: Medical History No pertinent family history Surgical History History of endometrial ablation Social History Smoking and tobacco status: current every day smoker Substance/Drug Use: current Physical Exam Const: COMMON NORMALS: no acute distress, patient oriented x3 and healthy appearing HENMT: COMMON NORMALS: normocephalic and atraumatic HEAD & SCALP: normocephalic and atraumatic Neck/C-Spine: COMMON NORMALS: full ROM and supple Chest: COMMONS NORMALS: normal inspection of the chest Resp: COMMON NORMALS: normal respiratory effort Cardio: COMMON NORMALS: regular rate, regular rhythm and No murmurs present (Cardio) RATE: regular rate RHYTHM: regular rhythm GI: COMMON NORMALS: Normal to inspection, nondistended, normoactive bowel sounds present, Soft to palpation and no masses PALPATION: Yes Soft to palpation and Yes Tenderness to palpation present (GI) Details: RUQ Extremity: COMMON NORMALS: normal to inspection and full ROM Neuro: COMMON NORMALS: patient oriented x3, moves all extremities and no focal motor deficits Psych: COMMON NORMALS: mental status grossly normal, Normal thought process pr esent and cooperative THOUGHT PROCESS: Normal thought process present Skin: COMMON NORMALS: no rashes or lesions noted and no wounds GENERAL SKIN EXAM: no rashes or lesions noted Course Vital Signs: Vital signs: Vital Signs Temperature 97.6 F 02/06/23 01:52 Pulse Rate 79 02/06/23 03:00 Respiratory Rate 20 H 02/06/23 03:08 Blood Pressure 201/108 02/06/23 03:00 Pulse Oximetry 97 02/06/23 03:08 Oxygen Delivery Me thod Room Air 02/06/23 03:00 MDM - Abdominal Pain Medical Decision Making Patient presents here with abdominal pain consistent with biliary colic blood work here is normal her pain is much improved her abdominal exam at discharge is benign she had ultrasound 4 days ago showed no signs of cholecystitis she has no signs of choledocholithiasis. Patient is stable for discharge she has follow-up with surgeon on the first we will prescribe her pain meds nausea medicine did give her dietary instructions as well. Return if worsening. Medical Records I reviewed the patient's medical records. Lab Data I reviewed the patient's lab results. 02/06/23 02:00 02/06/23 02:00 Labs/Radiology: Laboratory Results WBC 13.0 10^3/uL (4.0-10.0) H 02/06/23 02:00 RBC 4.84 10^6/uL (4.1-5.3) 02/06/23 02:00 Hgb 13.4 g/dL (11.5-15.3) 02/06/23 02:00 Hct 40.9 % (37.0-47.0) 02/06/23 02:00 MCV 84.5 fl (81-99) 02/06/23 02:00 MCH 27.7 pg (28.0-34.0) L 02/06/23 02:00 MCHC 32.8 g/dL (30.0-36.0) 02/06/23 02:00 RDW 13.6 % (12.1-15.1) 02/06/23 02:00 Plt Count 349 10^3/cmm (130-400) 02/06/23 02:00 MPV 9.2 fL (7.4-10.4) 02/06/23 02:00 Neut % (Auto) 66.2 % 02/06/23 02:00 Lymph % (Auto) 23.5 % 02/06/23 02:00 [place] % (Auto) 7.8 % 02/06/23 02:00 Eos % (Auto) 2.0 % 02/06/23 02:00 Baso % (Auto) 0.2 % 02/06/23 02:00 Neut # (Auto) 8.61 10^3/uL (1.8-7.7) H 02/06/23 02:00 Lymph # (Auto) 3.1 10^3/uL (0.8-4.8) 02/06/23 02:00 [place] # (Auto) 1.0 10^3/uL (0.2-0.9) H 02/06/23 02:00 Eos # (Auto) 0.3 10^3/uL (0.0-0.8) 02/06/23 02:00 Baso # (Auto) 0.0 10^3/uL (0.0-0.1) 02/06/23 02:00 Nucleated RBC % (auto) 0 % 02/06/23 02:00 Nucleated RBCs # 0.0 /100WBC 02/06/23 02:00 Sodium 138 mmol/L (136-145) 02/06/23 02:00 Potassium 4.0 mmol/L (3.5-5.1) 02/06/23 02:00 Chloride 102 mmol/L (98-107) 02/06/23 02:00 Carbon Dioxide 25 mmol/L (22-29) 02/06/23 02:00 Anion Gap 15.0 (5-19) 02/06/23 02:00 BUN 12 mg/dL (6-20) 02/06/23 02:00 Creatinine 0.6 mg/dL (0.5-0.9) 02/06/23 02:00 GFR Calculation 107.6 mL/min (90-130) 02/06/23 02:00 Glucose 154 mg/dL (65-115) H 02/06/23 02:00 Calculated Osmolality 289 mOsm/kg (285-295) 02/06/23 02:00 Calcium 9.0 mg/dL (8.5-10.5) 02/06/23 02:00 Total Bilirubin 0.2 mg/dL (0.15-1.2) 02/06/23 02:00 AST 16 U/L (0-32) 02/06/23 02:00 ALT 19 U/L (0-33) 02/06/23 02:00 Alkaline Phosphatase 100 U/L (35-105) 02/06/23 02:00 Total Protein 6.8 g/dL (6.6-8.7) 02/06/23 02:00 Albumin 3.9 g/dL (3.5-5.2) 02/06/23 02:00 Globulin 2.9 g/dL (1.3-4.6) 02/06/23 02:00 Lipase 21 U/L (13-60) 02/06/23 02:00 Discharge Plan Discharge Patient Disposition: Home Clinical Impression: Cholelithiasis, Biliary colic Condition: Stable Prescriptions: New ondansetron 4 mg tablet,disintegrating 4 mg PO Q6H PRN (Reason: nausea and vomiting) Qty: 14 0RF Percocet 7.5-325 mg tablet 1 tab PO Q6H PRN (Reason: pain) Qty: 20 0RF No Action doxycycline hyclate 100 mg tablet 100 mg PO BID 7 Days Qty: 14 0RF ondansetron 4 mg tablet,disintegrating 4 mg PO Q8H PRN (Reason: nausea and vomiting) Qty: 20 0RF Discharge Orders: Discharge ED (Routine); Ordered 02/06/23 Ordered By: Itzel Boateng Discharge Diet: Advance as tolerated Discharge Activity: Resume usual activity Patient Instructions: Biliary Colic (ED), Abdominal Pain (ED) Coding Level of Care Code ED Immunologist for Radha Delong
[2023-02-06] MEDS: sodium chloride 0.9% 1,000 ML 999 ML IV (01:59)
[2023-02-06] MEDS: ondansetron 2 mg/ML SDV 2 mL 4 MG IVP (02:03)
[2023-02-06 02:05] LABS: Basophils % 0.2 %; Eosinophils # 0.3 10^3/uL (0.0-0.8); Hematocrit 40.9 % (37.0-47.0); Hemoglobin 13.4 g/dL (11.5-15.3); Lymphocytes # 3.1 10^3/uL (0.8-4.8); Lymphocytes % 23.5 %; Mean Corpuscular HGB Conc 32.8 g/dL (30.0-36.0); Mean Corpuscular Hemoglobin 27.7 pg (28.0-34.0); Mean Corpuscular Volume 84.5 fl (81-99); Mean Platelet Volume 9.2 fL (7.4-10.4); Monocytes % 7.8 %; Neutrophils # 8.61 10^3/uL (1.8-7.7); Neutrophils % 66.2 %; Nucleated Red Blood Cells % 0 %; Platelet Count 349 10^3/cmm (130-400); Red Blood Count 4.84 10^6/uL (4.1-5.3); Red Cell Distribution Width 13.6 % (12.1-15.1)
[2023-02-06 02:06] VITALS: RESP 29; O2SAT 100
[2023-02-06] MEDS: morphine 4 mg/mL SDV 1 mL IVP (02:06)
[2023-02-06 02:21] LABS: Alanine Aminotransferase 19 U/L (0-33); Albumin Level 3.9 g/dL (3.5-5.2); Alkaline Phosphatase 100 U/L (35-105); Aspartate Amino Transferase 16 U/L (0-32); Blood Urea Nitrogen 12 mg/dL (6-20); Carbon Dioxide 25 mmol/L (22-29); Chloride 102 mmol/L (98-107); Globulin 2.9 g/dL (1.3-4.6); Glomerular Filtration Rate 107.6 mL/min (90-130); Glucose 154 mg/dL (65-115); Lipase 21 U/L (13-60); Osmolality Calculated 289 mOsm/kg (285-295); Sodium 138 mmol/L (136-145); Total Bilirubin 0.2 mg/dL (0.15-1.2); Total Protein 6.8 g/dL (6.6-8.7)
[2023-02-06 02:34] VITALS: BP 205/137
[2023-02-06] MEDS: hyDRALAzine 20 mg/mL INJ 1 mL 10 MG IVP (02:41)
[2023-02-06 03:00] VITALS: BP 201/108; PULSE 79; RESP 20; O2SAT 97
[2023-02-06 03:08] VITALS: RESP 20; O2SAT 97
[2023-02-06] MEDS: HYDROmorphone 1 mg/mL INJ 1 mL IVP (03:08)
[2023-02-06 03:47] VITALS: BP 159/89; PULSE 86; RESP 16; O2SAT 94
--- NOTE | 2023-02-14 14:04 | DCPLANNER ---
quality manager called patient due to no primary care physician - no answer at this time.
== END 2023-02-06 03:49 | disposition home or self-care (01) ==
PROVIDERS: Emergency Provider Emergency Medicine
DX: K80.20 Calculus of gallbladder without cholecystitis without obstruction (principal); F17.210 Nicotine dependence, cigarettes, uncomplicated
CPT/HCPCS: 36415; 80053; 83690; 85025; 96361; 96374; 96375; 99284; J0360; J1170; J2270; J2405; J7030

== ENCOUNTER 2023-03-05 17:13 | Emergency (ER) | payer MEDICAID, SELFPAY ==
[2023-03-05 17:15] VITALS: BP 214/100; PULSE 94; RESP 16; TEMP 36.4; O2SAT 96; BMI 39.9
[2023-03-05 17:36] VITALS: RESP 22
[2023-03-05] MEDS: morphine 4 mg/mL SDV 1 mL IVP ×2 (17:36→20:09)
[2023-03-05] MEDS: sodium chloride 0.9% 1,000 ML 999 ML IV (17:37)
[2023-03-05 17:40] LABS: Basophils % 0.2 %; Eosinophils # 0.2 10^3/uL (0.0-0.8); Eosinophils % 1.4 %; Hematocrit 42.1 % (37.0-47.0); Hemoglobin 13.9 g/dL (11.5-15.3); Lymphocytes # 3.7 10^3/uL (0.8-4.8); Lymphocytes % 30.3 %; Mean Corpuscular Hemoglobin 27.8 pg (28.0-34.0); Mean Corpuscular Volume 84.2 fl (81-99); Mean Platelet Volume 8.8 fL (7.4-10.4); Monocytes # 0.9 10^3/uL (0.2-0.9); Monocytes % 7.7 %; Neutrophils # 7.31 10^3/uL (1.8-7.7); Neutrophils % 60.2 %; Nucleated Red Blood Cells % 0 %; Platelet Count 350 10^3/cmm (130-400); Red Cell Distribution Width 13.9 % (12.1-15.1); White Blood Count 12.1 10^3/uL (4.0-10.0)
--- NOTE | 2023-03-05 17:40 | USR_ITS ---
PROCEDURE INFORMATION: Exam: US Abdomen, Limited; Right Upper Quadrant Exam date and time: 03/05/2023 6:09 PM Age: 48 years old Clinical indication: Abdominal pain; Patient HX: Ruq pain today. Note that patient is scheduled for lapchole in the near future. ; Additional info: Ruq abd pain TECHNIQUE: Imaging protocol: Real time ultrasound of the abdomen with image documentation. Limited exam focused on the right upper quadrant. COMPARISON: US gall bladder [id number] 02/02/2023 10:23 AM FINDINGS: Liver: Unremarkable. Gallbladder: Cholelithiasis and prominent gallbladder wall thickening. No pericholecystic fluid. Positive sonographic Pardo's sign, as per the teen counselor. This is a nonspecific finding. Biliary ducts: Normal. No stones. No dilation. Pancreas: Unremarkable as visualized. Right kidney: No mass. No definite stones. No hydronephrosis. US/US gall bladder [id number] IMPRESSION: Findings concerning for acute cholecystitis, as described above. If clinically indicated, HIDA scan may be obtained for confirmation.
--- NOTE | 2023-03-05 17:41 | ED_ITS ---
Documented by User: Fili Bolanos DO 03/06/23 08:16 HPI - Abdominal Pain General: Chief Complaint: Abdominal Pain Stated Complaint: abd pain Time Seen by Provider: 03/05/23 17:20 Source: patient Mode of arrival: ambulatory History of Present Illness: 48-year-old female presents emergency room with complaint of right upper quadrant abdominal pain. She has known cholelithiasis scheduled to have a cholecystectomy next month. last night had a roast beef sandwich, she woke up this morning had significant pain is progressively worsened throughout today. She denies any fever sweats or chills but very nauseous has vomited. No dysuria urgency or frequency MD elicited complaint: abdominal pain Pertinent past history: none Location: None Severity: mild Quality: cramping Exacerbating factors: nothing Relieving factors: nothing Associated Symptoms: Reports bloating, GI cramping, nausea, poor appetite and vomiting; Denies anorexia, belching, change in bowel habits, change in stool character, chills, coffee ground emesis, constipation, diarrhea, dyspepsia, dysuria, excessive flatus, fever(s), heartburn, hematochezia, hematuria, hematemesis, fecal incontinence, loose stools, melena and syncope Review of Systems Const: Denies: fever(s) or chills Card: Denies: syncope GI: Reports: abdominal pain, nausea, vomiting, bloating and GI cramping; Denies: hematemesis, coffee ground emesis, heartburn, diarrhea, constipation, belching, excessive flatus, fecal incontinence, change in bowel habits, change in stool character, hematochezia or melena : Denies: dysuria or hematuria PFS ED PFSH: Medical History No pertinent family history Surgical History History of endometrial ablation Social History Smoking and tobacco status: current every day smoker Alcohol intake: former Substance/Drug Use: current Physical Exam Const: COMMON NORMALS: no acute distress GENERAL APPEARANCE: cooperative and comfortable ORIENTATION/CONSCIOUSNESS: Yes awake, Yes oriented to person, Yes oriented to place and Yes oriented to time HENMT: COMMON NORMALS: normocephalic, atraumatic and hearing grossly normal bilaterally HEAD & SCALP: normocephalic and atraumatic Resp: COMMON NORMALS: normal respiratory effort, No retractions, No use of accessory muscles and clear to auscultation bilaterally AUSCULTATION: clear to auscultation bilaterally Cardio: COMMON NORMALS: regular rate, regular rhythm and No murmurs present (Cardio) RATE: regular rate RHYTHM: regular rhythm GI: COMMON NORMALS: No hepatosplenomegaly present AUSCULTATION: Yes normoactive bowel sounds PALPATION: Yes Tenderness to palpation present (GI) Details: RUQ, No Guarding due to palpation present (GI) and Yes No hepatosplenomegaly present Extremity: COMMON NORMALS: normal to inspection, capillary refill normal, no clubbing, cyanosis or edema, no calf tenderness and no pedal edema Neuro: SENSORIUM/ORIENTATION: Yes oriented to person, Yes oriented to place and Yes oriented to time Skin: COMMON NORMALS: no rashes or lesions noted GENERAL SKIN EXAM: no rashes or lesions noted Course Vital Signs: Vital signs: Vital Signs Temperature 97.6 F 03/05/23 20:42 Pulse Rate 79 03/05/23 20:42 Respiratory Rate 16 03/05/23 20:42 Blood Pressure 162/110 03/05/23 20:42 Pulse Oximetry 97 03/05/23 20:42 Oxygen Delivery Me thod Room Air 03/05/23 17:15 MDM - Abdominal Pain Medical Decision Making Care signed out to Dr. Taylor at change of shift. See final notes for diagnosis and disposition. 28-year-old female checked out to me by Dr. Galloway. She was pending an ultrasound at that point. White blood cell count is 12. Vitals show hypertension, otherwise she is afebrile, and they are stable. Pain is improved after morphine, Toradol, and Zofran. Ultrasound shows cholecystitis with wall thickening. No pericholecystic fluid collection. Liver enzymes are normal. No sign of obstruction. Lipase is normal. I spoke with surgery. They really would like this lady to be on 2 weeks of antibiotics prior to elective cholecystectomy. She has only had a couple of doses of the Augmentin she was prescribed. It will be continued. Pain and nausea medication prescribed as well as some Lomotil to combat the diarrhea she has been getting with the Augmentin. Close outpatient follow-up. She will call her surgeon tomorrow. Medical Records I reviewed the patient's medical records. Lab Data I reviewed the patient's lab results. 03/05/23 17:33 03/05/23 17:33 Labs/Radiology: Radiology Impressions Gallbladder Ultrasound 03/05/23 17:40 IMPRESSION: Findings concerning for acute cholecystitis, as described above. If clinically indicated, HIDA scan may be obtained for confirmation. Laboratory Results WBC 12.1 10^3/uL (4.0-10.0) H 03/05/23 17:33 RBC 5.00 10^6/uL (4.1-5.3) 03/05/23 17: Hgb 13.9 g/dL (11.5-15.3) 03/05/23 17: Hct 42.1 % (37.0-47.0) 03/05/23 17: MCV 84.2 fl (81-99) 03/05/23 17: MCH 27.8 pg (28.0-34.0) L 03/05/23 17: MCHC 33.0 g/dL (30.0-36.0) 03/05/23 17: RDW 13.9 % (12.1-15.1) 03/05/23 17: Plt Count 350 10^3/cmm (130-400) 03/05/23 17:33 MPV 8.8 fL (7.4-10.4) 03/05/23 17: Neut % (Auto) 60.2 % 03/05/23 17: Lymph % (Auto) 30.3 % 03/05/23 17:33 [place] % (Auto) 7.7 % 03/05/23 17:33 Eos % (Auto) 1.4 % 03/05/23 17: Baso % (Auto) 0.2 % 03/05/23 17: Neut # (Auto) 7.31 10^3/uL (1.8-7.7) 03/05/23 17: Lymph # (Auto) 3.7 10^3/uL (0.8-4.8) 03/05/23 17: [place] # (Auto) 0.9 10^3/uL (0.2-0.9) 03/05/23 17:33 Eos # (Auto) 0.2 10^3/uL (0.0-0.8) 03/05/23 17: Baso # (Auto) 0.0 10^3/uL (0.0-0.1) 03/05/23 17:33 Nucleated RBC % (auto) 0 % 03/05/23 17: Nucleated RBCs # 0.0 /100WBC 03/05/23 17:33 Sodium 138 mmol/L (136-145) 03/05/23 17:33 Potassium 3.7 mmol/L (3.5-5.1) 03/05/23 17: Chloride 104 mmol/L (98-107) 03/05/23 17: Carbon Dioxide 25 mmol/L (22-29) 03/05/23 17:33 Anion Gap 12.7 (5-19) 03/05/23 17:33 BUN 9 mg/dL (6-20) 03/05/23 17:33 Creatinine 0.4 mg/dL (0.5-0.9) L 03/05/23 17:33 GFR Calculation 171.8 mL/min (90-130) H 03/05/23 17:33 Glucose 121 mg/dL (65-115) H 03/05/23 17:33 Calculated Osmolality 286 mOsm/kg (285-295) 03/05/23 17:33 Calcium 8.9 mg/dL (8.5-10.5) 03/05/23 17:33 Total Bilirubin 0.4 mg/dL (0.15-1.2) 03/05/23 17:33 AST 14 U/L (0-32) 03/05/23 17:33 ALT 14 U/L (0-33) 03/05/23 17:33 Alkaline Phosphatase 94 U/L (35-105) 03/05/23 17:33 Total Protein 6.8 g/dL (6.6-8.7) 03/05/23 17:33 Albumin 3.8 g/dL (3.5-5.2) 03/05/23 17:33 Globulin 3.0 g/dL (1.3-4.6) 03/05/23 17: Lipase 17 U/L (13-60) 03/05/23 17:33 Discharge Plan Discharge Patient Disposition: Home Clinical Impression: Cholecystitis Condition: Stable Prescriptions: New Lomotil 2.5-0.025 mg tablet 1 tab PO Q6H PRN (Reason: diarrhea) Qty: 20 0RF Continued amoxicillin-pot clavulanate 875-125 mg tablet 1 tab PO BID 7 Days Qty: 14 0RF Percocet 7.5-325 mg tablet 1 tab PO Q6H PRN (Reason: pain) Qty: 15 0RF ondansetron 4 mg tablet,disintegrating 4 mg PO Q6H PRN (Reason: nausea and vomiting) Qty: 14 0RF No Action triamcinolone acetonide 0.025 % cream 1 applic topical DAILY PRN meloxicam 7.5 mg tablet 7.5 mg PO DAILY 7 Days Qty: 7 0RF pantoprazole [Protonix] 40 mg tablet,delayed release (DR/EC) 40 mg PO QAM 30 Days Qty: 30 0RF Discharge Orders: Discharge ED (Routine); Ordered 03/05/23 Ordered By: Sherman Taylor Patient Instructions: Cholecystitis (ED), Opioid Safety, Pain Management Activity Restrictions/Additional Instructions: Continue your antibiotics as directed. Surgery states that you need 2 full weeks of antibiotics prior to gallbladder removal. Take antidiarrheal medication with antibiotic to prevent side effects. Pain and nausea medication as needed. Return for fever greater than 100 despite 2-3 more doses of antibiotics, vomiting liquids or medications, other concerning symptoms. Call your surgeon tomorrow, and let them know you were seen here, as they may wish to see you sooner. Coding Level of Care Code ED Member Of [employer] for [place] [employer] Documented by User: Sherman Taylor DO 03/05/23 20:26 HPI - Abdominal Pain General: Chief Complaint: Abdominal Pain Stated Complaint: abd pain Time Seen by Provider: 03/05/23 17:20 PFSH ED PFSH: Medical History No pertinent family history Surgical History History of endometrial ablation Social History Smoking and tobacco status: current every day smoker Alcohol intake: former Substance/Drug Use: current Course Consultations: Consultation #1: [place] Vital Signs: Vital signs: Vital Signs Temperature 97.6 F 03/05/23 20:42 Pulse Rate 79 03/05/23 20:42 Respiratory Rate 16 03/05/23 20:42 Blood Pressure 162/110 03/05/23 20:42 Pulse Oximetry 97 03/05/23 20:42 Oxygen Delivery Me thod Room Air 03/05/23 17:15 MDM - Abdominal Pain Medical Decision Making 28-year-old female checked out to me by Dr. Galloway. She was pending an ultrasound at that point. White blood cell count is 12. Vitals show hypertension, otherwise she is afebrile, and they are stable. Pain is improved after morphine, Toradol, and Zofran. Ultrasound shows cholecystitis with wall thickening. No pericholecystic fluid collection. Liver enzymes are normal. No sign of obstruction. Lipase is normal. I spoke with surgery. They really would like this lady to be on 2 weeks of antibiotics prior to elective cholecystectomy. She has only had a couple of doses of the Augmentin she was prescribed. It will be continued. Pain and nausea medication prescribed as well as some Lomotil to combat the diarrhea she has been getting with the Augmentin. Close outpatient follow-up. She will call her surgeon tomorrow. Lab Data 03/05/23 17:33 03/05/23 17:33 Labs/Radiology: Radiology Impressions Gallbladder Ultrasound 03/05/23 17:40 IMPRESSION: Findings concerning for acute cholecystitis, as described above. If clinically indicated, HIDA scan may be obtained for confirmation. Laboratory Results WBC 12.1 10^3/uL (4.0-10.0) H 03/05/23 17:33 RBC 5.00 10^6/uL (4.1-5.3) 03/05/23 17:33 Hgb 13.9 g/dL (11.5-15.3) 03/05/23 17:33 Hct 42.1 % (37.0-47.0) 03/05/23 17: MCV 84.2 fl (81-99) 03/05/23 17: MCH 27.8 pg (28.0-34.0) L 03/05/23 17: MCHC 33.0 g/dL (30.0-36.0) 03/05/23: RDW 13.9 % (12.1-15.1) 03/05/23: Plt Count 350 10^3/cmm (130-400) 03/05/23 17: MPV 8.8 fL (7.4-10.4) 03/05/23 17: Neut % (Auto) 60.2 % 03/05/23: Lymph % (Auto) 30.3 % 03/05/23 17: [place] % (Auto) 7.7 % 03/05/23: Eos % (Auto) 1.4 % 03/05/23: Baso % (Auto) 0.2 % 03/05/23: Neut # (Auto) 7.31 10^3/uL (1.8-7.7) 03/05/23 17: Lymph # (Auto) 3.7 10^3/uL (0.8-4.8) 03/05/23 17: [place] # (Auto) 0.9 10^3/uL (0.2-0.9) 03/05/23 17: Eos # (Auto) 0.2 10^3/uL (0.0-0.8) 03/05/23: Baso # (Auto) 0.0 10^3/uL (0.0-0.1) 03/05/23: Nucleated RBC % (auto) 0 % 03/05/23: Nucleated RBCs # 0.0 /100WBC 03/05/23 17: Sodium 138 mmol/L (136-145) 03/05/23 17: Potassium 3.7 mmol/L (3.5-5.1) 03/05/23 17: Chloride 104 mmol/L (98-107) 03/05/23 17: Carbon Dioxide 25 mmol/L (22-29) 03/05/23 17:33 Anion Gap 12.7 (5-19) 03/05/23 17:33 BUN 9 mg/dL (6-20) 03/05/23 17:33 Creatinine 0.4 mg/dL (0.5-0.9) L 03/05/23 17:33 GFR Calculation 171.8 mL/min (90-130) H 03/05/23 17:33 Glucose 121 mg/dL (65-115) H 03/05/23 17:33 Calculated Osmolality 286 mOsm/kg (285-295) 03/05/23 17:33 Calcium 8.9 mg/dL (8.5-10.5) 03/05/23 17:33 Total Bilirubin 0.4 mg/dL (0.15-1.2) 03/05/23 17:33 AST 14 U/L (0-32) 03/05/23 17:33 ALT 14 U/L (0-33) 03/05/23 17:33 Alkaline Phosphatase 94 U/L (35-105) 03/05/23 17:33 Total Protein 6.8 g/dL (6.6-8.7) 03/05/23 17:33 Albumin 3.8 g/dL (3.5-5.2) 03/05/23 17:33 Globulin 3.0 g/dL (1.3-4.6) 03/05/23 17:33 Lipase 17 U/L (13-60) 03/05/23 17:33 Discharge Plan Discharge Patient Disposition: Home Clinical Impression: Cholecystitis Condition: Stable Prescriptions: New Lomotil 2.5-0.025 mg tablet 1 tab PO Q6H PRN (Reason: diarrhea) Qty: 20 0RF Continued amoxicillin-pot clavulanate 875-125 mg tablet 1 tab PO BID 7 Days Qty: 14 0RF Percocet 7.5-325 mg tablet 1 tab PO Q6H PRN (Reason: pain) Qty: 15 0RF ondansetron 4 mg tablet,disintegrating 4 mg PO Q6H PRN (Reason: nausea and vomiting) Qty: 14 0RF No Action triamcinolone acetonide 0.025 % cream 1 applic topical DAILY PRN meloxicam 7.5 mg tablet 7.5 mg PO DAILY 7 Days Qty: 7 0RF pantoprazole [Protonix] 40 mg tablet,delayed release (DR/EC) 40 mg PO QAM 30 Days Qty: 30 0RF Discharge Orders: Discharge ED (Routine); Ordered 03/05/23 Ordered By: Sherman Taylor Patient Instructions: Cholecystitis (ED), Opioid Safety, Pain Management Activity Restrictions/Additional Instructions: Continue your antibiotics as directed. Surgery states that you need 2 full weeks of antibiotics prior to gallbladder removal. Take antidiarrheal medication with antibiotic to prevent side effects. Pain and nausea medication as needed. Return for fever greater than 100 despite 2-3 more doses of antibiotics, vomiting liquids or medications, other concerning symptoms. Call your surgeon tomorrow, and let them know you were seen here, as they may wish to see you sooner. Coding Level of Care Code ED Member Of [employer] for Radha Delong
[2023-03-05 17:57] LABS: Alanine Aminotransferase 14 U/L (0-33); Albumin Level 3.8 g/dL (3.5-5.2); Alkaline Phosphatase 94 U/L (35-105); Anion Gap 12.7 (5-19); Aspartate Amino Transferase 14 U/L (0-32); Blood Urea Nitrogen 9 mg/dL (6-20); Calcium 8.9 mg/dL (8.5-10.5); Carbon Dioxide 25 mmol/L (22-29); Chloride 104 mmol/L (98-107); Glomerular Filtration Rate 171.8 mL/min (90-130); Glucose 121 mg/dL (65-115); Lipase 17 U/L (13-60); Osmolality Calculated 286 mOsm/kg (285-295); Potassium 3.7 mmol/L (3.5-5.1); Sodium 138 mmol/L (136-145); Total Bilirubin 0.4 mg/dL (0.15-1.2); Total Protein 6.8 g/dL (6.6-8.7)
[2023-03-05] MEDS: ondansetron 2 mg/ML SDV 2 mL 4 MG IVP ×2 (18:03→20:09)
[2023-03-05 19:04] VITALS: BP 162/110; PULSE 79; RESP 16; O2SAT 97
[2023-03-05] MEDS: ketorolac 30 mg/mL INJ IVP (20:09)
[2023-03-05 20:42] VITALS: BP 162/110; PULSE 79; RESP 16; TEMP 36.4; O2SAT 97
== END 2023-03-05 20:43 | disposition home or self-care (01) ==
PROVIDERS: Family Medicine; Emergency Provider Emergency Medicine
DX: K81.9 Cholecystitis, unspecified (principal); F17.210 Nicotine dependence, cigarettes, uncomplicated
CPT/HCPCS: 76705; 80053; 83690; 85025; 96374; 96375; 96376; 99284; J1885; J2270; J2405; J7030

== ENCOUNTER 2024-02-16 22:37 | Emergency (ER) | payer SELFPAY ==
[2024-02-16 22:54] VITALS: BP 164/73; PULSE 75; RESP 17; TEMP 37.1; O2SAT 97; BMI 39.9
--- NOTE | 2024-02-16 23:07 | XRR_ITS ---
PROCEDURE INFORMATION: Exam: XR Right Shoulder Exam date and time: 02/16/2024 11:09 PM Age: 49 years old Clinical indication: Right; Patient HX: C/O RT shoulder pain after lifting heavy objects at work. No injury. ; Additional info: Right shoulder pain after lifting TECHNIQUE: Imaging protocol: Radiologic exam of the right shoulder. Views: 2 or more views. COMPARISON: CR XR chest 1V portable [id number] 02/02/2023 7:47 AM FINDINGS: Bones/joints: Normal. Soft tissues: Normal. XR/XR shoulder RT min 2V* [id number] IMPRESSION: No acute findings.
--- NOTE | 2024-02-16 23:56 | W.ED.EXTPRO ---
HPI - Extremity Problem General: Chief complaint: Extremity Injury, Upper Stated complaint: Rt Shoulder Time Seen by Provider: 02/16/24 22:47 History of Present Illness: 49-year-old female who believes she overdid it lifting boxes at work. She complains of right shoulder pain, and decreased range of motion. She says that today, this morning, her shoulder hurt worse than it did yesterday. She says that she has had cortisone shots in that shoulder previously for similar symptoms. PFSH ED PFSH: Medical History No pertinent family history Surgical History History of endometrial ablation Social History Smoking and tobacco/nicotine status: current every day tobacco/nicotine user Alcohol intake: former Substance/Drug Use: current Physical Exam Const: COMMON NORMALS: no acute distress GENERAL APPEARANCE: cooperative; not ill appearing and not frail appearing HENMT: COMMON NORMALS: normocephalic, atraumatic and Normal external nose present HEAD & SCALP: normocephalic and atraumatic FACE & SINUS: normal facial exam and face symmetric NOSE: Normal external nose present Eye: COMMON NORMALS: Equal, round and reactive pupils present and EOMs intact bilaterally PUPIL: Yes Equal, round and reactive pupils present Neck/C-Spine: GENERAL: Yes trachea midline Chest: CHEST: Yes Symmetrical chest wall rise Resp: COMMON NORMALS: normal respiratory effort, No retractions and No use of accessory muscles Cardio: COMMON NORMALS: regular rate and regular rhythm RATE: regular rate RHYTHM: regular rhythm GI: COMMON NORMALS: Normal to inspection, nondistended, normoactive bowel sounds present Extremity: NARRATIVE EXTREMITY EXAM: Exam the right upper extremity reveals mild tenderness over the anterior shoulder. There is no deformity. Pulses and sensation are intact distally. On muscle testing, empty can test is positive. There is some pain with active range of motion. Neuro: [place] COMA SCALE: document GCS findings [place] coma scale eye opening: Spontaneous [place] coma scale verbal response: Orientated [place] coma scale motor response: Obey commands [place] coma scale total score: 15 SENSORY EXAM: Yes extremities (intact) Psych: COMMON NORMALS: speech normal SPEECH: Yes normal speech Skin: COMMON NORMALS: no rashes or lesions noted GENERAL SKIN EXAM: no rashes or lesions noted Course Vital Signs: Vital signs: Vital Signs Temperature 98.7 F 02/16/24 22:54 Pulse Rate 75 02/16/24 22:54 Respiratory Rate 17 02/16/24 22:54 Blood Pressure 164/73 02/16/24 22:54 Pulse Oximetry 97 02/16/24 22:54 Oxygen Delivery Me thod Room Air 02/16/24 22:54 MDM - Extremity (Nontraumatic) Medical Decision Making 49-year-old female with nontraumatic right shoulder pain. X-rays negative. Muscle testing of the shoulder, her empty can test is positive. She will be treated for rotator cuff tendinitis. Anti-inflammatories as well as a burst of tapering dose of steroid. Outpatient follow-up. Lab Data Radiology Impressions Shoulder X-Ray 02/16/24 23:07 IMPRESSION: No acute findings. All radiology interpretation(s) finalized by discharge Discharge Plan Discharge Patient Disposition: Home Clinical Impression: Rotator cuff syndrome Condition: Stable Prescriptions: New ketorolac 10 mg tablet 10 mg PO TID PRN (Reason: pain) Qty: 10 0RF Medrol ([place]) 4 mg tablets,dose pack See Rx Instructions .ROUTE .COMPLEX Qty: 21 0RF Rx Instructions: orally per package directions No Action triamcinolone acetonide 0.025 % cream 1 applic topical DAILY PRN meloxicam 7.5 mg tablet 7.5 mg PO DAILY 7 Days Qty: 7 0RF pantoprazole [Protonix] 40 mg tablet,delayed release (DR/EC) 40 mg PO QAM 30 Days Qty: 30 0RF amoxicillin-pot clavulanate 875-125 mg tablet 1 tab PO BID 7 Days Qty: 14 0RF Lomotil 2.5-0.025 mg tablet 1 tab PO Q6H PRN (Reason: diarrhea) Qty: 20 0RF Percocet 7.5-325 mg tablet 1 tab PO Q6H PRN (Reason: pain) Qty: 15 0RF ondansetron 4 mg tablet,disintegrating 4 mg PO Q6H PRN (Reason: nausea and vomiting) Qty: 14 0RF Discharge Orders: Discharge ED (Routine); Ordered 07/27/24 Ordered By: Sherman Taylor Patient Instructions: Rotator Cuff Tendinitis (ED), Opioid Safety, Pain Management Activity Restrictions/Additional Instructions: Medication as directed. See your doctor next week. Coding Level of Care Code ED Health Care Consultant for Radha Delong
[2024-02-17] MEDS: dexamethasone 4 mg Tablet 10 MG PO
[2024-02-17] MEDS: oxyCODONE-APAP 5-325 mg Tablet 2 TAB PO
== END 2024-02-17 00:04 | disposition home or self-care (01) ==
PROVIDERS: Emergency Provider Emergency Medicine
DX: M75.101 Unspecified rotator cuff tear or rupture of right shoulder, not specified as traumatic (principal); Z72.0 Tobacco use
CPT/HCPCS: 73030; 99283; J8540

== ENCOUNTER 2024-05-06 11:42 | Emergency (ER) | payer SELFPAY ==
[2024-05-06 11:55] VITALS: BP 146/83; PULSE 101; RESP 18; TEMP 38.5; O2SAT 100; BMI 38.7
--- NOTE | 2024-05-06 12:08 | XRR_ITS ---
PROCEDURE INFORMATION: Exam: XR Chest Exam date and time: 05/06/2024 12:13 PM Age: 49 years old Clinical indication: Fever; Additional info: Fever, body aches TECHNIQUE: Imaging protocol: Radiologic exam of the chest. Views: 1 view. COMPARISON: CR XR chest 1V portable [id number] 02/02/2023 7:47 AM FINDINGS: Lungs: Consolidative infiltrate developing in the right lower lobe. Pleural spaces: Unremarkable. No pleural effusion. No pneumothorax. Heart/Mediastinum: Unremarkable. No cardiomegaly. Bones/joints: Unremarkable. XR/XR chest 1V portable [id number] IMPRESSION: Right lower lobe pneumonia.
--- NOTE | 2024-05-06 12:14 | ED_ITS ---
HPI - General Adult 2 General: Chief complaint: General Medical Stated complaint: whole cheo hurmaite, weak Time Seen by Provider: 05/06/24 11:53 Source: patient Mode of arrival: wheelchair Limitations: no limitations History of Present Illness: Patient is a 49-year-old female with a main complaint of I hurt all over . She is reporting diffuse body aches over the past 2.5 days. She is febrile upon arrival at 101.3. She reports a nonproductive cough and a headache. Denies sick contacts. She is not having any vomiting or diarrhea. No rash. She has not noticed any neck stiffness. Has not noticed any extremity swelling or joint swelling/redness. Onset (ago): day(s) Pain Consistency: constant Relieving factors: none Exacerbating factors: none Associated symptoms: Reports headache(s); Deny chest pain, dyspnea, nausea, rash or vomiting Treatments prior to arrival: none Related Data Previous Rx's Medication Instructions Recorded amoxicillin 875 mg-potassium 1 tab PO BID #14 tabs 05/06/24 clavulanate 125 mg tablet doxycycline monohydrate 100 mg 100 mg PO Q12H 10 days #20 caps 05/06/24 capsule Allergies Allergy/AdvReac Type Severity Reaction Status Date / Time No Known Allergies Allergy Verified 02/16/24 22:57 Review of Systems 2 Const: Reports: fever(s), chills, body aches and fatigue ENMT: Denies: throat pain, odynophagia, ear or mastoid pain, nasal discharge, nasal congestion or sinus pain Card: Denies: chest pain Resp: Reports: non-productive cough; Denies: dyspnea, wheezing or hemoptysis GI: Denies: abdominal pain, nausea, vomiting or diarrhea : Denies: flank pain or dysuria Musc: Reports: other (states she hurts from head to toe ); Denies: extremity swelling, joint redness, joint warmth or muscle cramps Skin/Breast: Denies: rash Neuro: Reports: headache(s); Denies: numbness in extremities, weakness in extremities, sensory changes or dizziness PFSH ED 2 PFSH: Medical History No pertinent family history Surgical History History of endometrial ablation Social History Smoking and tobacco/nicotine status: current every day tobacco/nicotine user Alcohol intake: former Substance/Drug Use: current Physical Exam 2 Const: COMMON NORMALS: average body habitus, patient oriented x3, no limitations, alert and well nourished GENERAL APPEARANCE: cooperative and ill appearing NUTRITIONAL APPEARANCE: obese (BMI 38.7) HENMT: COMMON NORMALS: normocephalic, atraumatic, hearing grossly normal bilaterally, external ears normal, EAC's normal, TM's normal bilaterally, Normal external nose present, Normal nasal mucous membranes and turbinates present, moist oral mucous membranes and oropharynx normal HEAD & SCALP: normal to inspection, normocephalic and atraumatic FACE & SINUS: normal facial exam and sinuses nontender NOSE: Normal external nose present and Normal nasal mucous membranes and turbinates present EXTERNAL EAR: Yes external ears normal E XTERNAL AUDITORY CANAL: EAC's normal TYMPANIC MEMBRANE: TM's normal bilaterally THROAT: posterior oropharynx normal, tonsils normal and uvula midline Eye: COMMON NORMALS: Equal, round and reactive pupils present, EOMs intact bilaterally and conjunctivae normal CONJUNCTIVA: Yes conjunctivae normal P UPIL: Yes Equal, round and reactive pupils present Neck/C-Spine: COMMON NORMALS: full ROM, no lymphadenopathy and no meningeal signs Resp: COMMON NORMALS: normal respiratory effort and clear to auscultation bilaterally AUSCULTATION: clear to auscultation bilaterally Cardio: COMMON NORMALS: regular rhythm RATE: tachycardic (mild; pt febrile) RHYTHM: regular rhythm GI: COMMON NORMALS: Normal to inspection, nondistended, normoactive bowel sounds present, Soft to palpation, non-tender and no masses PALPATION: Yes Soft to palpation Back/Pelvis: COMMON NORMALS: thoracic and lumbar spine normal to inspection Extremity: GENERAL: Yes normal exam except as noted Neuro: [place] COMA SCALE: document GCS findings [place] coma scale eye opening: Spontaneous [place] coma scale verbal response: Orientated [place] coma scale motor response: Obey commands [place] coma scale total score: 15 COMMON NORMALS: patient oriented x3, CN's II-XII intact bilaterally, moves all extremities, no focal motor deficits and no sensory deficits noted S ENSORIUM/ORIENTATION: Yes alert MENINGEAL SIGNS: Yes no meningeal signs Skin: COMMON NORMALS: no rashes or lesions noted GENERAL SKIN EXAM: no rashes or lesions noted Course 2 Vital Signs: Vital signs: Vital Signs Temperature 99.9 F H 05/06/24 14:03 Pulse Rate 81 05/06/24 14:03 Respiratory Rate 18 05/06/24 11:55 Blood Pressure 146/83 05/06/24 12:45 Pulse Oximetry 98 05/06/24 14:03 Oxygen Delivery Me thod Room Air 05/06/24 14:03 MDM - General Adult Medical Decision Making Patient is a 49-year-old female here with complaints of hurting all over. She did report a nonproductive cough. She is febrile upon arrival at 101.3 with vitals otherwise stable. Fever down after antipyretics. Blood work initiated from triage by another provider. White count is 15.59. Chemistry overall is fairly unremarkable. She does have an elevated CRP/ESR. COVID, flu, RSV were negative. CXR showing a right lower lobe pneumonia. Patient was given IM Rocephin prior to discharge. Will be placed on Augmentin/Doxycycline for treatment of community-acquired pneumonia. She is not requiring oxygen. Return to ED precautions given. Medical Records I reviewed the patient's medical records. Lab Data I reviewed the patient's lab results. 05/06/24 12:08 05/06/24 12:08 Radiology Impressions Chest X-Ray 05/06/24 12:08 IMPRESSION: Right lower lobe pneumonia. Laboratory Results WBC 15.59 10^3/uL (3.29-11.43) H 05/06/24 12:08 RBC 5.27 10^6/uL (3.85-5.65) 05/06/24 12:08 Hgb 14.30 g/dL (11.27-16.99) 05/06/24 12:08 Hct 45.0 % (36-47) 05/06/24 12:08 MCV 85.4 fl (85-98) 05/06/24 12:08 MCH 27.1 pg (27-33) 05/06/24 12:08 MCHC 31.8 g/dL (30-55) 05/06/24 12:08 RDW 14.1 % (12.1-15.1) 05/06/24 12:08 Plt Count 302 10^3/cmm (157-399) 05/06/24 12:08 MPV 9.3 fL (7.4-10.4) 05/06/24 12:08 Neut % (Auto) 79.5 % 05/06/24 12:08 Lymph % (Auto) 9.7 % 05/06/24 12:08 Wetzel % (Auto) 10.3 % 05/06/24 12:08 Eos % (Auto) 0.0 % 05/06/24 12:08 Baso % (Auto) 0.1 % 05/06/24 12:08 Neut # (Auto) 12.38 10^3/uL (1.8-7.7) H 05/06/24 12:08 Lymph # (Auto) 1.5 10^3/uL (0.8-4.8) 05/06/24 12:08 Wetzel # (Auto) 1.6 10^3/uL (0.2-0.9) H 05/06/24 12:08 Eos # (Auto) 0.0 10^3/uL (0.0-0.8) 05/06/24 12:08 Baso # (Auto) 0.0 10^3/uL (0.0-0.1) 05/06/24 12:08 Nucleated RBC % (auto) 0 % 05/06/24 12:08 Nucleated RBCs # 0.0 /100WBC 05/06/24 12:08 ESR 21 mm/hr (0-15) H 05/06/24 12:08 Sodium 131 mmol/L (136-145) L 05/06/24 12:08 Potassium 3.7 mmol/L (3.5-5.1) 05/06/24 12:08 Chloride 96 mmol/L (98-107) L 05/06/24 12:08 Carbon Dioxide 25 mmol/L (22-29) 05/06/24 12:08 Anion Gap 13.7 (5-19) 05/06/24 12:08 BUN 8 mg/dL (6-20) 05/06/24 12:08 Creatinine 0.7 mg/dL (0.5-0.9) 05/06/24 12:08 GFR Calculation 89.7 mL/min (90-130) L 05/06/24 12:08 Glucose 148 mg/dL (65-115) H 05/06/24 12:08 Calculated Osmolality 273 mOsm/kg (285-295) L 05/06/24 12:08 Calcium 8.5 mg/dL (8.5-10.5) 05/06/24 12:08 Total Bilirubin 0.4 mg/dL (0.15-1.2) 05/06/24 12:08 AST 12 U/L (0-32) 05/06/24 12:08 ALT 12 U/L (0-33) 05/06/24 12:08 Alkaline Phosphatase 110 U/L (35-105) H 05/06/24 12:08 C-Reactive Protein 101.0 mg/L (0.0-4.9) H 05/06/24 12:08 Total Protein 6.8 g/dL (6.6-8.7) 05/06/24 12:08 Albumin 3.8 g/dL (3.5-5.2) 05/06/24 12:08 Globulin 3.0 g/dL (1.3-4.6) 05/06/24 12:08 Coronavirus (PCR) Negative (Negative) 05/06/24 12:03 Influenza A (PCR) Negative (Negative) 05/06/24 12:03 Influenza Type B (PCR) Negative (Negative) 05/06/24 12:03 RSV (PCR) Negative (Negative) 05/06/24 12:03 All radiology interpretation(s) finalized by discharge Discharge Plan Discharge Patient Disposition: Home Clinical Impression: Right lower lobe pneumonia Qualifiers: Pneumonia type: due to unspecified organism Qualified Code(s): J18.9 - Pneumonia, unspecified organism Condition: Stable Prescriptions: New doxycycline monohydrate 100 mg capsule 100 mg PO Q12H 10 Days Qty: 20 0RF amoxicillin-pot clavulanate 875-125 mg tablet 1 tab PO BID Qty: 14 0RF Discharge Orders: Discharge ED (Routine); Ordered 05/06/24 Ordered By: iSlva Hendricks Patient Instructions: Bacterial Pneumonia (DC), Pneumonia (ED) Activity Restrictions/Additional Instructions: Fill your antibiotics and start them immediately. You need to return to the emergency department for worsening or uncontrollable fevers that do not respond to [id number] antipyretics such as Tylenol and Ibuprofen, significant shortness of breath or difficulty breathing, generally feeling worse or unwell, or any other concerns you may have. I hope you begin to feel better soon. Coding Level of Care Code ED Union Contract Representative for Radha Delong
[2024-05-06 12:15] LABS: Basophils % 0.1 %; Lymphocytes # 1.5 10^3/uL (0.8-4.8); Lymphocytes % 9.7 %; Mean Corpuscular HGB Conc 31.8 g/dL (30-55); Mean Corpuscular Hemoglobin 27.1 pg (27-33); Mean Corpuscular Volume 85.4 fl (85-98); Mean Platelet Volume 9.3 fL (7.4-10.4); Monocytes # 1.6 10^3/uL (0.2-0.9); Monocytes % 10.3 %; Neutrophils # 12.38 10^3/uL (1.8-7.7); Neutrophils % 79.5 %; Nucleated Red Blood Cells % 0 %; Platelet Count 302 10^3/cmm (157-399); Red Blood Count 5.27 10^6/uL (3.85-5.65); Red Cell Distribution Width 14.1 % (12.1-15.1); White Blood Count 15.59 10^3/uL (3.29-11.43)
[2024-05-06 12:24] LABS: Erythrocyte Sedimentation Rate 21 mm/hr (0-15)
--- NOTE | 2024-05-06 12:31 | PC.PHAR ---
removed several old scripts from list that patient is no longer on, patient had a january script for ketorolac 10mg but states she doesnt take
[2024-05-06 12:34] LABS: Alanine Aminotransferase 12 U/L (0-33); Albumin Level 3.8 g/dL (3.5-5.2); Alkaline Phosphatase 110 U/L (35-105); Anion Gap 13.7 (5-19); Aspartate Amino Transferase 12 U/L (0-32); Blood Urea Nitrogen 8 mg/dL (6-20); Calcium 8.5 mg/dL (8.5-10.5); Carbon Dioxide 25 mmol/L (22-29); Chloride 96 mmol/L (98-107); Creatinine Clr Calc Pharmacy 124.1035; Glomerular Filtration Rate 89.7 mL/min (90-130); Glucose 148 mg/dL (65-115); Osmolality Calculated 273 mOsm/kg (285-295); Potassium 3.7 mmol/L (3.5-5.1); Sodium 131 mmol/L (136-145); Total Bilirubin 0.4 mg/dL (0.15-1.2); Total Protein 6.8 g/dL (6.6-8.7)
[2024-05-06] MEDS: ibuprofen 800 mg tablet PO (12:43)
[2024-05-06] MEDS: acetaminophen 500 mg Tablet 1000 MG PO (12:43)
[2024-05-06 12:45] VITALS: BP 146/83; PULSE 101; O2SAT 100
[2024-05-06 12:55] LABS: Covid PCR NEGATIVE (Negative); Influenza A NEGATIVE (Negative); Influenza B NEGATIVE (Negative); Respiratory Syncytial Virus Ce NEGATIVE (Negative)
[2024-05-06] MEDS: cefTRIAXone 1,000 MG in water for injection-sterile 2.1 ML 2.1 MG IM (14:01)
[2024-05-06 14:03] VITALS: PULSE 81; TEMP 37.7; O2SAT 98
[2024-05-06 14:17] LABS: Bilirubin Urine Negative (Negative); Blood Urine 2+ (Negative); Glucose Urine UA Negative (Normal); Ketones Urine Negative (Negative); Leukocyte Esterase Urine Trace (Negative); Nitrate Urine Positive (Negative); Protein Urine 1+ (Negative); Specific Gravity, Urine 1.021 (1.005-1.030); Urine Appearance Cloudy (CLEAR); Urine Color Yellow (Yellow); pH Urine 5.5 (5-7)
[2024-05-06 14:22] LABS: Add Urine Microscopic? YES; Bacteria Urine 4+ /hpf; Hyaline Casts Urine 0.81 /lpf
[2024-05-06 14:27] VITALS: BP 141/80; PULSE 76; O2SAT 98
[2024-05-06 14:38] LABS: Add Urine Culture? Yes
[2024-05-06 14:57] LABS: Adenovirus Not Detected (NOT DETECT); Chlamydia Pneumoniae Not Detected (NOT DETECT); Coronavirus 229E,HKU1,NL63,OC4 Not Detected (NOT DETECT); Human Metapneumovirus Not Detected (NOT DETECT); Human Rhinovirus/Enterovirus Not Detected (NOT DETECT); Influenza A Not Detected (NOT DETECT); Influenza A H1 Not Detected (NOT DETECT); Influenza A H1-2009 Not Detected (NOT DETECT); Influenza A H3 Not Detected (NOT DETECT); Influenza B Not Detected (NOT DETECT); Mycoplasma Pneumoniae Not Detected (NOT DETECT); Parainfluenza Virus Type 1 Not Detected (NOT DETECT); Parainfluenza Virus Type 2 Not Detected (NOT DETECT); Parainfluenza Virus Type 3 Not Detected (NOT DETECT); Parainfluenza Virus Type 4 Not Detected (NOT DETECT); Respiratory Syncytial Virus A Not Detected (NOT DETECT); Respiratory Syncytial Virus B Not Detected (NOT DETECT); SARS-COV-2 Not Detected (NOT DETECT)
== END 2024-05-06 14:30 | disposition home or self-care (01) ==
PROVIDERS: Family Medicine; Emergency Provider Physician Assistant
DX: J18.1 Lobar pneumonia, unspecified organism (principal); Z11.52 Encounter for screening for COVID-19; Z72.0 Tobacco use
CPT/HCPCS: 0241U; 71045; 80053; 81001; 85025; 85651; 86140; 87077; 87086; 87186; 87486; 87581; 87633; 96372; 99284; J0696

== ENCOUNTER 2024-09-01 15:41 | Emergency (ER) | payer SELFPAY ==
[2024-09-01 15:45] VITALS: BP 173/103; PULSE 103; RESP 18; TEMP 37.3; O2SAT 97
--- NOTE | 2024-09-01 15:53 | ED_ITS ---
HPI - URI/Sore Throat General: Chief Complaint: Upper Respiratory Infection Stated Complaint: in pain , body ache , cough, fever Time Seen by Provider: 09/01/24 15:52 Source: patient Mode of arrival: ambulatory Limitations: no limitations History of Present Illness: Patient is a 49-year-old female presents to ED today with a complaint of cough, congestion, sore throat, fevers, chills, body aches x 2 days. She has had a productive cough and decreased appetite. Also has a headache. MD elicited complaint: fever, cough, rhinorrhea and nasal congestion Onset (ago): day(s) Consistency: constant Severity: moderate Description of mucous: clear Able to tolerate fluids by mouth: Yes Exacerbating factors: nothing Relieving factors: nothing Associated symptoms: Reports chills, fever(s), headache(s) and nasal congestion; Deny abdominal pain, chest pain, diarrhea, ear or mastoid pain or vomiting Treatments prior to arrival: none Related Data Previous Rx's ?Medication ?Instructions ?Recorded amoxicillin 875 mg-potassium 1 tab PO BID #14 tabs clavulanate 125 mg tablet oseltamivir 75 mg capsule (Tamiflu) 75 mg PO BID 5 day s #10 caps 09/01/24 Allergies Allergy/AdvReac Type Severity Reaction Status Date / Time No Known Allergies Allergy Verified 09/01/24 15:50 Review of Systems Const: Reports: fever(s), chills, body aches, change in appetite and fatigue Eyes: Denies: change in vision, blurry vision, photophobia, eye discomfort, eye discharge or eye redness ENMT: Reports: throat pain, odynophagia, nasal discharge and nasal congestion; Denies: ear or mastoid pain Card: Denies: chest pain, edema, lightheadedness, syncope or pre-syncope Resp: Reports: non-productive cough and chest congestion GI: Denies: abdominal pain, vomiting or diarrhea : Denies: flank pain or dysuria Musc: Denies: neck pain, back pain, extremity pain, joint swelling or joint redness Skin/Breast: Denies: rash Neuro: Reports: headache(s); Denies: numbness in extremities, weakness in extremities, sensory changes or dizziness [facility] ED PFSH: Medical History No pertinent family history Surgical History History of endometrial ablation Social History Smoking and tobacco/nicotine status: current every day tobacco/nicotine user Alcohol intake: former Substance/Drug Use: current Physical Exam Const: COMMON NORMALS: no acute distress, average body habitus, patient oriented x3, no limitations, alert and well nourished GENERAL APPEARANCE: cooperative and ill appearing HENMT: COMMON NORMALS: normocephalic, atraumatic, hearing grossly normal bilaterally, external ears normal, EAC's normal, TM's normal bilaterally, Normal external nose present, Normal nasal mucous membranes and turbinates present, moist oral mucous membranes and oropharynx normal HEAD & SCALP: normal to inspection, normocephalic and atraumatic FACE & SINUS: normal facial exam and sinuses nontender NOSE: Normal external nose present and Normal nasal mucous membranes and turbinates present EXTERNAL EAR: Yes external ears normal EXTERNAL AUDITORY CANAL: EAC's normal TYMPANIC MEMBRANE: TM's normal bilaterally THROAT: posterior oropharynx normal, tonsils normal and uvula midline Eye: COMMON NORMALS: Equal, round and reactive pupils present, EOMs intact bilaterally and conjunctivae normal CONJUNCTIVA: Yes conjunctivae normal PUPIL: Yes Equal, round and reactive pupils present Neck/C-Spine: COMMON NORMALS: no lymphadenopathy Resp: COMMON NORMALS: normal respiratory effort and clear to auscultation bilaterally AUSCULTATION: clear to auscultation bilaterally Cardio: COMMON NORMALS: regular rate and regular rhythm RATE: regular rate RHYTHM: regular rhythm Neuro: COMMON NORMALS: patient oriented x3 SENSORIUM/ORIENTATION: Yes alert Skin: COMMON NORMALS: no rashes or lesions noted GENERAL SKIN EXAM: no rashes or lesions noted Course Vital Signs: Vital signs: Vital Signs Temperature 99.2 F 09/01/24 15:45 Pulse Rate 103 H 09/01/24 15:45 Respiratory Rate 18 09/01/24 15:45 Blood Pressure 173/103 09/01/24 15:45 Pulse Oximetry 97 09/01/24 15:45 Oxygen Delivery Me thod Room Air 09/01/24 15:45 MDM - URI/Sore Throat Medical Decision Making Patient here for flu like symptoms starting yesterday. She is positive for influenza A. She would like Tamiflu. Discussed other conservative therapies. CXR personal interpretation showing probable viral findings/pneumonia. Lab Data I reviewed the patient's lab results. Laboratory Results Coronavirus (PCR) Negative (Negative) 09/01/24 15:53 Influenza A (PCR) Positive (Negative) 09/01/24 15:53 Influenza Type B (PCR) Negative (Negative) 09/01/24 15:53 RSV (PCR) Negative (Negative) 09/01/24 15:53 XR interpretation done by ED provider, pending radiology final review Discharge Plan Discharge Patient Disposition: Home Clinical Impression: Influenza Condition: Stable Prescriptions: New oseltamivir [Tamiflu] 75 mg capsule 75 mg PO BID 5 Days Qty: 10 0RF No Action amoxicillin-pot clavulanate 875-125 mg tablet 1 tab PO BID Qty: 14 0RF Discharge Orders: Discharge ED (Routine); Ordered 09/01/24 Ordered By: Silva Hendricks Patient Instructions: Influenza (DC) Activity Restrictions/Additional Instructions: As we discussed, you are positive for influenza A. We will place you on Tamiflu as you are in the therapeutic and beneficial window for this medication to help shorten symptoms. We discussed alternating Tylenol and/or Ibuprofen [id number] to help with fevers and body aches. Recommending lots of rest and fluids. You need to quarantine and stay off of work and away from other people until symptoms are improving and you are fever free for 24 hours without medications. Print Language: Welsh Coding Level of Care Code ED Record Center Coordinator for Radha Delong
--- NOTE | 2024-09-01 16:08 | XRR_ITS ---
PROCEDURE INFORMATION: Exam: XR Chest Exam date and time: 09/01/2024 4:32 PM Age: 49 years old Clinical indication: Cough and fever and shortness of breath; Additional info: SOB, cough, fevers TECHNIQUE: Imaging protocol: Radiologic exam of the chest. Views: 1 view. COMPARISON: CR XR chest 1V portable [id number] 05/06/2024 12:13 PM FINDINGS: Lungs: Resolution of right basilar infiltration. No new focal airspace abnormality. Pleural spaces: Unremarkable. No pleural effusion. No pneumothorax. Heart/Mediastinum: Cardiomegaly. Bones/joints: Unremarkable. XR/XR chest 1V portable [id number] IMPRESSION: See above.
[2024-09-01 16:36] LABS: Covid PCR NEGATIVE (Negative); Influenza A POSITIVE (Negative); Influenza B NEGATIVE (Negative); Respiratory Syncytial Virus Ce NEGATIVE (Negative)
[2024-09-01] MEDS: oseltamivir phosphate 75 mg Capsule PO (17:09)
[2024-09-01 17:20] VITALS: BP 158/90; PULSE 86; O2SAT 90
== END 2024-09-01 17:15 | disposition home or self-care (01) ==
PROVIDERS: Emergency Provider Physician Assistant
DX: J10.1 Influenza due to other identified influenza virus with other respiratory manifestations (principal); Z11.52 Encounter for screening for COVID-19; Z72.0 Tobacco use
CPT/HCPCS: 71045; 87637; 99283

== ENCOUNTER 2025-03-12 13:45 | Emergency (ER) | payer SELFPAY ==
--- OUTSIDE RECORDS SUMMARY | 2025-03-12 13:52 | XMS_ITS | Encounter Summary ---
Demographics Address [address] [place] [address] Mobile Phone Work Phone Email Address Preferred Language Unknown Marital Status Single Spiritism Affiliation Unknown Race White Ethnic Group Unknown Author Organization [facility] Address [address] [place] [address] Care Team Providers Care Phlebotomy Technician Name Role Phone Nadia Joshi DO Primary Care Provider [phone] Encounter Details Date Type Department Care Team (Late st Contact Info) Description 03/11/2025 External Device Data [facility] ABSTRACTION Provider, Abstract NO ADDRESS ON FILE Social History Tobacco Use Types Packs/Day Years Used Date Smoking Tobacco: Every Day Cigarettes Smokeless Tobacco: Never Alcohol Use Standard Drinks/Week Comments Yes 0 (1 standard drink = 0.6 oz pur e alcohol) occasional Feeling Safe Answer Date Recorded Are you in a relationship wi th someone who hurts you emotionally and/or physically? No 05/08/2024 Comments No Sex and Gender Information Value Date Recorded Sex Assigned at Not on file Legal Sex Female 1:58 PM CDT Gender Identity Not on file Sexual Orientation Not on file documented as of this encounter Plan of Treatment Not on file documented as of this encounter Visit Diagnoses Not on filedocumented in this encounter Care Teams Phlebotomy Technician Relationship Specialty Start Date End Date Nadia Joshi DO [address] [facility] [place] [id number] PCP - General Family Practice 01/09/24 documented as of this encounter
--- OUTSIDE RECORDS SUMMARY | 2025-03-12 13:52 | XMS_ITS | Clinical Summary ---
Demographics Address [address] [place] [address] Mobile Phone Work Phone Email Address Preferred Language Unknown Marital Status Single Mandaen Affiliation Unknown Race White Ethnic Group Unknown Author Organization [facility] Address [address] [place] [address] Care Team Providers Care Wire Galvanizer Name Role Phone Nadia Joshi DO Primary Care Provider Allergies No known active allergies Medications ibuprofen 200 mg tablet Take 800 mg by mouth every 6 hours as needed for Pain, Mild. Active fluticasone propionate (FLONASE) 50 mcg/spray [place], Suspension nasal inhalerIndicati ons:Acute non-recurrent maxillary sinusitis Administer 2 Sprays in each nostril daily. 16 Gram 2 3 Active aspirin-acetami nophen-caffeine (EXCEDRIN EXTRA STRENGTH) 250-250-65 mg Tablet Take 1 Tablet by mouth every 4 hours as needed for Headaches. Active acetaminophen (TYLENOL) 500 mg tablet Take 1,000 mg by mouth every 6 hours as needed. Active amoxicillin-cla vulanate (AUGMENTIN) 875-125 mg tablet Take 1 Tablet by mouth every 12 hours. X 7 days starting 05/06/24 Active doxycycline hyclate (VIBRAMYCIN) 100 mg capsule Take 100 mg by mouth 2 times daily. X 10 days starting 05/06/24 Active Active Problems No known active problems Encounters Date Type Department Care Team Description 03/11/2025 External Device Data [facility] Provider, Abstract 02/24/2025 External Device Data [facility] Provider, Abstract 02/04/2025 External Device Data [facility] Provider, Abstract 02/04/2025 External Device Data [facility] Provider, Abstract 02/03/2025 External Device Data [facility] Provider, Abstract 01/20/2025 External Device Data [facility] Provider, Abstract 01/13/2025 External Device Data [facility] Provider, Abstract 12/11/2024 External Device Data [facility] Provider, Abstract 12/11/2024 External Device Data [facility] Provider, Abstract 12/10/2024 External Device Data [facility] Provider, Abstract from Last 3 Months Social History Tobacco Use Types Packs/Day Years Used Date Smoking Tobacco: Every Day Cigarettes Smokeless Tobacco: Never Tobacco Cessation:Ready to Q uit: Not Asked; Counseling Given: Not Answered Alcohol Use Standard Drinks/Week Comments Yes 0 [...] on file Sexual Orientation Not on file Last Filed Vital Signs Vital Sign Reading Time Taken Comments Blood Pressure 140/83 05/08/2024 6:06 PM CDT Pulse 88 05/08/2024 2:02 PM CDT Temperature 39.1 C (102.3 F) 05/08/2024 6:06 PM CDT Respiratory Rate 18 05/08/2024 6:06 PM CDT Oxygen Saturation 95% 05/08/2024 6:06 PM CDT Inhaled Oxygen Concentration - - Weight 117 kg (258 lb) 05/08/2024 6:06 PM CDT Height 165.1 cm (5' 5 ) 05/08/2024 6:06 PM CDT Body Mass Index 42.93 05/08/2024 6:06 PM CDT Plan of Treatment Health Maintenance Due Date Last Done Comments Pre-Diabetes and Diabetes Screening 1977 DTAP/TDAP/TD VACCINES (1 - Tdap) 01/07/1996 HEPATITIS B VACCINES (1 of 3 - 19+ 3-dose series) 12/21 HPV/Cotest (21-29) 1998 CERVICAL CANCER SCREENING 2007 HPV/Cotest (30-65) 2007 PAP SMEAR 2007 BREAST CANCER SCREENING 2017 COLORECTAL SCREENING 2022 Colorectal Cancer Screening 2022 FIT-DNA Q 3 years 2022 FIT/FOBT Q 1 year 2022 Flex Sig/CT Colonography Q 5 years 2022 INFLUENZA VACCINE (#1) 2025 Care Teams Wire Galvanizer Relationship Specialty Start Date End Date Nadia Joshi DO [address] [place] [address] PCP - General Family Practice 01/09/24
[2025-03-12 14:03] VITALS: BP 164/101; PULSE 91; RESP 19; TEMP 36.7; O2SAT 99; BMI 39.9
--- NOTE | 2025-03-12 14:20 | XRR_ITS ---
PROCEDURE INFORMATION: Exam: XR Left Hand Exam date and time: 03/12/2025 2:24 PM Age: 50 years old Clinical indication: Swelling; Hand; Left TECHNIQUE: Imaging protocol: Radiologic exam of the left hand. Views: 3 or more views. COMPARISON: No relevant prior studies available. FINDINGS: Bones/joints: Alignment is normal. No acute fracture. Severe osteoarthritis at the 1st carpometacarpal joint. Soft tissues: Visible soft tissues are unremarkable. XR/XR hand LT min 3V* [id number] IMPRESSION: 1. No acute findings. 2. Severe osteoarthritis at the 1st carpometacarpal joint.
--- NOTE | 2025-03-12 15:06 | ED_ITS ---
HPI - Extremity Problem 2 General: Chief complaint: Extremity Injury, Upper Stated complaint: L hand hurt swollen Time Seen by Provider: 03/12/25 14:20 Source: patient Mode of arrival: ambulatory Limitations: no limitations History of Present Illness: Patient is a 50-year-old female presents the emergency department complaining of left hand swelling and pain for the past few days. States pain began on Sunday, she lifts regularly with her work, but does not note any specific trauma or injury to the area. States that it began with pain but has slowly progressed to swelling, primarily to the 2nd and 3rd digit. She is not reporting any fever, nausea or vomiting, or any other systemic symptoms of illness. She does have previous dog bite to the dorsum of the left hand, does not report any recent bites of any kind. Pain primarily into the dorsum of the hand, radiates distally. Limited range of motion secondary to pain, but no numbness or weakness reported. MD Complaint: extremity pain and extremity swelling Onset (ago): day(s) Pain Consistency: constant Location: left and upper extremity (Hand) Quality: aching and sharp Radiation: distal Relieving factors: nothing Exacerbating factors: range of motion Associated symptoms: Deny chest pain, fever(s) or rash Related Data Previous Rx's ?Medication ?Instructions ?Recorded ketorolac 10 mg tablet 10 mg PO Q8H PRN pain #15 ta bs 03/12/25 Allergies Allergy/AdvReac Type Severity Reaction Status Date / Time No Known Allergies Allergy Verified 09/01/24 15:50 Review of Systems 2 General: Reports: 10 or more systems reviewed and unremarkable except in HPI and below Const: Denies: fever(s) or chills Card: Denies: chest pain Resp: Denies: dyspnea or productive cough GI: Denies: abdominal pain, nausea, vomiting or diarrhea : Denies: flank pain Musc: Reports: extremity pain (Left hand) and extremity swelling (Left hand); Denies: neck pain, back pain, joint pain, joint swelling, joint redness, joint warmth, limited range of motion or muscle weakness Skin/Breast: Denies: rash Neuro: Denies: headache(s), numbness in extremities or weakness in extremities PFSH ED 2 PFSH: Medical History No pertinent family history Surgical History History of endometrial ablation Social History Smoking and tobacco/nicotine status: current every day tobacco/nicotine user Alcohol intake: former Substance/Drug Use: current Physical Exam 2 Const: COMMON NORMALS: no acute distress, patient oriented x3, no limitations, healthy appearing, alert and well nourished HENMT: COMMON NORMALS: normocephalic and atraumatic HEAD & SCALP: n ormocephalic and atraumatic Neck/C-Spine: COMMON NORMALS: full ROM, supple and no meningeal signs Resp: COMMON NORMALS: normal respiratory effort, No use of accessory muscles and clear to auscultation bilaterally AUSCULTATION: clear to auscultation bilaterally Cardio: COMMON NORMALS: regular rate and regular rhythm RATE: regular rate RHYTHM: regular rhythm Extremity: COMMON NORMALS: capillary refill normal NARRATIVE EXTREMITY EXAM: Mild swelling in the dorsum of the left hand, tenderness to palpation diffusely in the left hand, no significant erythema noted. Neurovascular exam is unremarkable. No pain or abnormalities in the left wrist. Scar from previous dog bite. Limited range of motion secondary to pain. Neuro: COMMON NORMALS: patient oriented x3, moves all extremities, no focal motor deficits and no sensory deficits noted SENSORIUM/ORIENTATION: Yes alert MENINGEAL SIGNS: Yes no meningeal signs Skin: COMMON NORMALS: no rashes or lesions noted GENERAL SKIN EXAM: no rashes or lesions noted Course 2 Vital Signs: Vital signs: Vital Signs Temperature 98.1 F 03/12/25 14:03 Pulse Rate 86 03/12/25 18:18 Respiratory Rate 18 03/12/25 18:18 Blood Pressure 138/75 03/12/25 18:18 Pulse Oximetry 95 03/12/25 18:18 Oxygen Delivery Me thod Room Air 03/12/25 14:03 MDM - Extremity (Nontraumatic) Medical Decision Making Patient presenting with worsening pain in her left hand, primarily to the palmar aspect radiating into the 2nd and 3rd digits. On exam there is minimal edema noted in the hand and some erythema to the palmar aspect, she kept her finger in passive flexion as extension cause quite a bit of pain. History of dog bite to the dorsal aspect years prior. No trauma was reported, states that the pain seemingly started gradually while lifting boxes at work. Her hand x-ray negative for any acute fracture, arthritis in the first carpometacarpal joint patient has known history of this and states this does not feel a flareup. Inflammatory markers and CBC checked and unremarkable. This is presenting as a tenosynovitis, likely overuse. I spoke with orthopedist, Dr. Reddy, who agrees that this can be treated with prescriptive strength NSAIDs and follow-up. She is placed in aluminum splint in extension, and given a work note. Return precautions given. Lab Data 03/12/25 16:25 Radiology Impressions Hand X-Ray 03/12/25 14:20 IMPRESSION: 1. No acute findings. 2. Severe osteoarthritis at the 1st carpometacarpal joint. Laboratory Results WBC 11.87 10^3/uL (3.29-11.43) H 03/12/25 16:25 RBC 4.96 10^6/uL (3.85-5.65) 03/12/25 16:25 Hgb 14.10 g/dL (11.27-16.99) 03/12/25 16:25 Hct 42.9 % (36-47) 03/12/25 16:25 MCV 86.5 fl (85-98) 03/12/25 16:25 MCH 28.4 pg (27-33) 03/12/25 16:25 MCHC 32.9 g/dL (30-55) 03/12/25 16:25 RDW 13.8 % (12.1-15.1) 03/12/25 16:25 Plt Count 317 10^3/cmm (157-399) 03/12/25 16:25 MPV 9.3 fL (7.4-10.4) 03/12/25 16:25 Neut % (Auto) 72.1 % 03/12/25 16:25 Lymph % (Auto) 19.9 % 03/12/25 16:25 [place] % (Auto) 5.9 % 03/12/25 16:25 Eos % (Auto) 1.7 % 03/12/25 16:25 Baso % (Auto) 0.1 % 03/12/25 16:25 Neut # (Auto) 8.57 10^3/uL (1.8-7.7) H 03/12/25 16:25 Lymph # (Auto) 2.4 10^3/uL (0.8-4.8) 03/12/25 16:25 [place] # (Auto) 0.7 10^3/uL (0.2-0.9) 03/12/25 16:25 Eos # (Auto) 0.2 10^3/uL (0.0-0.8) 03/12/25 16:25 Baso # (Auto) 0.0 10^3/uL (0.0-0.1) 03/12/25 16:25 Nucleated RBC % (auto) 0 % 03/12/25 16:25 Nucleated RBCs # 0.0 /100WBC 03/12/25 16:25 ESR 6 mm/hr (0-15) 03/12/25 16:25 C-Reactive Protein 6.2 mg/L (0.0-4.9) H 03/12/25 16:25 All radiology interpretation(s) finalized by discharge Discharge Plan Discharge Patient Disposition: Home Clinical Impression: Tenosynovitis Condition: Stable Prescriptions: New ketorolac 10 mg tablet 10 mg PO Q8H PRN (Reason: pain) Qty: 15 0RF Discharge Orders: Discharge ED (Routine); Ordered 03/12/25 Ordered By: Reggie Anne Patient Instructions: Patient Portal & Earl Instructions Activity Restrictions/Additional Instructions: Tenosynovitis Discharge Instructions Diagnosis: [place] tenosynovitis due to overuse. Medications: - Ketorolac (Toradol): Prescribed as a short course NSAID for pain and inflammation control. Use as directed, typically for no more than 5 days due to risk of gastrointestinal, renal, and cardiovascular adverse effects. Monitor for side effects such as abdominal pain, dyspepsia, or signs of bleeding. Avoid concurrent use with other NSAIDs unless specifically instructed. Home Treatment Recommendations: - Immobilization: Apply a thumb spica splint to immobilize the wrist and thumb. Immobilization for 3?4 weeks is associated with improved pain and function, especially when combined with other modalities. Commercial or custom splints are acceptable; ensure the thumb is immobilized in a functional position. - Activity Modification: Avoid activities that exacerbate pain, particularly repetitive thumb or wrist movements. Relative rest is recommended, but complete immobilization of the upper limb is not necessary. - Cryotherapy: Application of ice packs to the affected area for 15?20 minutes several times daily may help with pain control. - Physical Modalities: Consider therapeutic ultrasound or low-level laser therapy as adjuncts for pain and functional improvement, if available and appropriate. - Hand Therapy: Referral to occupational or physical therapy may be considered for instruction in tendon gliding and gentle [id number] exercises once acute pain subsides. Adjunctive/Alternative Treatments: - Corticosteroid Injection: If symptoms persist despite initial conservative management, corticosteroid injection (preferably ultrasound-guided) is the most effective nonoperative intervention for pain and functional improvement. Risks and benefits should be discussed prior to administration. - Other Modalities: Extracorporeal shockwave therapy and acupuncture have limited but emerging evidence for short-term pain relief; these may be considered in refractory cases or when standard therapies are contraindicated. Follow-Up: - Orthopedic Referral: Outpatient follow-up with orthopedics is recommended for further evaluation and consideration of corticosteroid injection or other interventions if symptoms do not improve. - Indications for Urgent Reassessment: Advise the patient to seek prompt medical attention for signs of infection (increasing redness, swelling, warmth, fever), neurovascular compromise (numbness, tingling, weakness), or severe uncontrolled pain. Prognosis: - Most patients improve with conservative management. If symptoms persist beyond 6 weeks of nonoperative therapy, further evaluation and consideration of surgical intervention may be warranted. Patient Education: - Provide instructions regarding splint use, medication side effects, and activity modification. Emphasize adherence to therapy and follow-up appointments. 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
[2025-03-12 16:43] LABS: Hematocrit 42.9 % (36-47); Hemoglobin 14.10 g/dL (11.27-16.99); Mean Corpuscular HGB Conc 32.9 g/dL (30-55); Mean Corpuscular Hemoglobin 28.4 pg (27-33); Mean Corpuscular Volume 86.5 fl (85-98); Nucleated Red Blood Cells % 0 %; Platelet Count 317 10^3/cmm (157-399); Red Blood Count 4.96 10^6/uL (3.85-5.65); White Blood Count 11.87 10^3/uL (3.29-11.43)
[2025-03-12 18:18] VITALS: BP 138/75; PULSE 86; RESP 18; O2SAT 95
--- NOTE | 2025-03-13 05:07 | DCPLANNER ---
Message sent to Ortho for referral - Patient presenting with worsening pain in her left hand, primarily to the palmar aspect radiating into the 2nd and 3rd digits. On exam there is minimal edema noted in the hand and some erythema to the palmar aspect, she kept her finger in passive flexion as extension cause quite a bit of pain. History of dog bite to the dorsal aspect years prior. No trauma was reported, states that the pain seemingly started gradually while lifting boxes at work. Her hand x-ray negative for any acute fracture, arthritis in the first carpometacarpal joint patient has known history of this and states this does not feel a flareup. Inflammatory markers and CBC checked and unremarkable. This is presenting as a tenosynovitis, likely overuse. I spoke with orthopedist, Dr. Reddy, who agrees that this can be treated with prescriptive strength NSAIDs and follow-up. She is placed in aluminum splint in extension, and given a work note. Return precautions given.
== END 2025-03-12 18:31 | disposition home or self-care (01) ==
PROVIDERS: Emergency Provider Physician Assistant
DX: M65.942 Unspecified synovitis and tenosynovitis, left hand (principal); Z72.0 Tobacco use
CPT/HCPCS: 36415; 73130; 85025; 85651; 86140; 96372; 99284; J1100; J1885

== ENCOUNTER 2025-07-03 20:46 | Emergency (ER) | payer SELFPAY ==
[2025-07-03] VITALS (9 sets, daily range): BP systolic 144–173; BP diastolic 83–101; PULSE 67–93; RESP 16–18; TEMP 36.7–37.1; O2SAT 92–99; BMI 45.1
--- OUTSIDE RECORDS SUMMARY | 2025-07-03 20:51 | XMS_ITS | Clinical Summary ---
Demographics Address [address] [place] [address] Mobile Phone Work Phone Email Address Preferred Language Unknown Marital Status Single Restorationism Affiliation Unknown Race White Ethnic Group Not or Lati no Author Organization [facility] Address [address] [place] [address] Care Team Providers Care Fire Patrol Name Role Phone Nadia Joshi DO Primary Care Provider [phone] Allergies No known active allergies Medications ibuprofen 200 mg tablet Take 800 mg by mouth every 6 hours as needed for Pain, Mild. Active fluticasone propionate (FLONASE) 50 mcg/spray [place], Suspension nasal inhalerIndicati ons:Acute non-recurrent maxillary sinusitis [...] Encounters Date Type Department Care Team Description 05/05/2025 External Device Data [facility] Provider, Abstract 04/28/2025 External Device Data [facility] ABSTRACTION Provider, Abstract 04/28/2025 External Device Data [facility] ABSTRACTION Provider, Abstract 04/28/2025 External Device Data [facility]STRACTION Provider, Abstract 04/07/2025 External Device Data [facility] ABSTRACTION Provider, Abstract [...] Health Maintenance Due Date Last Done Comments DTAP/TDAP/TD VACCINES (1 - Tdap) 01/07/1996 HEPATITIS [...] 2022 INFLUENZA VACCINE (#1) 2025 Care Teams Fire Patrol Relationship Specialty Start Date End Date Nadia Joshi DO [address] [place] [id number] PCP - General Family Practice 01/09/24
--- NOTE | 2025-07-03 21:02 | XRR_ITS ---
PROCEDURE INFORMATION: Exam: XR Chest Exam date and time: 07/03/2025 9:17 PM Age: 50 years old Clinical indication: Cough and shortness of breath; Cough with SOB TECHNIQUE: Imaging protocol: Radiologic exam of the chest. Views: 1 view. COMPARISON: CR XR chest 1V portable [id number] 04/23/2025 16:32 FINDINGS: Lungs: Lungs are hypoaerated with some central and infrahilar crowding. A punctate calcified granuloma is seen along the right lateral lower lung region and is unchanged. Overlying soft tissues are prominent slightly challenging penetration. No consolidation. Pleural spaces: Costophrenic angles are well demarcated. No pleural effusion. No pneumothorax. Heart/Mediastinum: Mild cardiomegaly. Mild widening of the superior mediastinum appears to be similar to prior films dating back to 02/02/2023 and is felt to be due to lipomatous soft tissue Bones/. joints: Unremarkable. XR/XR chest 1V portable [id number] IMPRESSION: 1. No acute portable plain film findings. 2. Mild cardiomegaly.
[2025-07-03 21:48] LABS: Respiratory Syncytial Virus Ce NEGATIVE (Negative); SARS-CoV-2 PCR NEGATIVE (Negative)
[2025-07-03] MEDS: methylPREDNISolone sod succ 125 mg/2 mL INJ 80 MG IM (22:19)
--- NOTE | 2025-07-03 22:42 | W.ED.URI ---
HPI - URI/Sore Throat General: Chief Complaint: Upper Respiratory Infection Stated Complaint: SOB cant breathe well Time Seen by Provider: 07/03/25 21:01 History of Present Illness: Patient is a 50-year-old female presenting with cough productive of sputum that started a couple of days ago. She reports the cough has been getting worse, and she has been experiencing wheezing. Patient mentions she has been trying to rest and feels the symptoms are affecting her sinuses. She says she is short of breath. Patient has a history of wheezing and has required inhalers in the past, though she reports she was unable to locate her inhaler today. The patient currently does not have a primary care physician. Related Data Previous Rx's ?Medication ?Instructions ?Recorded ketorolac 10 mg tablet 10 mg PO Q8H PRN pain #15 tabs 03/12/25 albuterol sulfate 90 mcg/actuation 2 inh inhalation Q4H PRN shortness 07/03/25 aerosol inhaler of breath or wheezing #6.7 grams azithromycin 250 mg tablet See Rx Instructions PO .COMPLEX #6 07/03/25 tabs methylprednisolone 4 mg tablets in See Rx Instructions PO PER PKG DIR 07/03/25 a dose pack (Medrol (Ernst)) #21 ea Allergies Allergy/AdvReac Type Severity Reaction Status Date / Time No Known Allergies Allergy Verified 03/17/25 14:44 [facility] ED [facility]: Medical History (Updated 07/03/25 @ 23:10 by Sherman Taylor DO) No pertinent family history Surgical History History of endometrial ablation Social History Smoking and tobacco/nicotine status: current every day tobacco/nicotine user Alcohol intake: former Substance/Drug Use: current Physical Exam Const: COMMON NORMALS: no acute distress GENERAL APPEARANCE: cooperative; not ill appearing and not frail appearing HENMT: COMMON NORMALS: normocephalic, atraumatic and Normal external nose present HEAD & SCALP: normocephalic and atraumatic FACE & SINUS: normal facial exam and face symmetric NOSE: Normal external nose present Eye: COMMON NORMALS: Equal, round and reactive pupils present and EOMs intact bilaterally PUPIL: Yes Equal, round and reactive pupils present Neck/C-Spine: GENERAL: Yes trachea midline Chest: CHEST: Yes Symmetrical chest wall rise Resp: EFFORT & INSPECTION: Yes tachypneic AUSCULTATION: wheezes Cardio: COMMON NORMALS: regular rate and regular rhythm RATE: regular rate RHYTHM: regular rhythm GI: COMMON NORMALS: Normal to inspection, nondistended, normoactive bowel sounds present Extremity: COMMON NORMALS: no pedal edema Neuro: CAMI COMA SCALE: document GCS findings [place] coma scale eye opening: Spontaneous [place]i coma scale verbal response: Orientated [place] coma scale motor response: Obey commands [place] coma scale total score: 15 SENSORY EXAM: Yes extremities (intact) Psych: COMMON NORMALS: speech normal SPEECH: Yes normal speech Skin: COMMON NORMALS: no rashes or lesions noted GENERAL SKIN EXAM: no rashes or lesions noted Course Vital Signs: Vital signs: Vital Signs Temperature 98.0 F 07/03/25 23:19 Pulse Rate 93 07/03/25 23:19 Respiratory Rate 18 07/03/25 23:19 Blood Pressure 158/97 07/03/25 23:19 Pulse Oximetry 92 07/03/25 23:19 Oxygen Delivery Me thod Room Air 07/03/25 22:21 MDM - URI/Sore Throat Medical Decision Making Room air saturations are normal. Patient is afebrile here. She is not requiring oxygen. Chest x-ray is negative. Swabs for flu and COVID are negative. She is given Solu-Medrol, and a breathing treatment here. She is covered with azithromycin. We will continue Lasix. She is stable for discharge. Lab Data Radiology Impressions Chest X-Ray 07/03/25 21:02 IMPRESSION: 1. No acute portable plain film findings. 2. Mild cardiomegaly. Laboratory Results Influenza A (PCR) Negative (Negative) 07/03/25 20:56 Influenza Type B (PCR) Negative (Negative) 07/03/25 20:56 RSV (PCR) Negative (Negative) 07/03/25 20:56 SARS-CoV-2 (PCR) Negative (Negative) 07/03/25 20:56 All radiology interpretation(s) finalized by discharge Discharge Plan Discharge Patient Disposition: Home Clinical Impression: Acute bronchitis Condition: Stable Prescriptions: New albuterol sulfate 90 mcg/actuation HFA aerosol inhaler 2 inh INHALATION Q4H PRN (Reason: shortness of breath or wheezing) Qty: 6.7 1RF azithromycin 250 mg tablet See Rx Instructions .ROUTE .COMPLEX Qty: 6 0RF Rx Instructions: For 250 mg dose pack: take 500 mg today (day 1), then 250 mg for 4 days (days 2-5) Continued methylprednisolone [Medrol (Ernst)] 4 mg tablets,dose pack See Rx Instructions PO PER PKG DIR Qty: 21 0RF Rx Instructions: PO PER PKG DIR for 6 days No Action ketorolac 10 mg tablet 10 mg PO Q8H PRN (Reason: pain) Qty: 15 0RF Discharge Orders: Discharge ED (Routine); Ordered 07/03/25 Ordered By: Sherman Taylor Patient Instructions: Acute Bronchitis (ED), Opioid Safety, Pain Management, Patient Portal & Earl Instructions Activity Restrictions/Additional Instructions: Use the prescribed inhaler 4 times daily for the next 48 hours scheduled, then you may use it as needed. Other medications as directed. Return for any problems. Call your doctor Sunday for follow-up appointment. 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
== END 2025-07-03 23:21 | disposition home or self-care (01) ==
PROVIDERS: Emergency Provider Emergency Medicine
DX: J20.9 Acute bronchitis, unspecified (principal); Z11.52 Encounter for screening for COVID-19; Z72.0 Tobacco use
CPT/HCPCS: 71045; 87637; 94640; 96372; 99284; J2919; J9999; Q0144